=== PATIENT | male | born 1945 | race Caucasian/White ===

== ENCOUNTER → 2017-04-14 | Outpatient (REF) | payer MEDICARE, BC, OTHER ==
[2017-04-14 12:39] LABS: MEAN CORPUSCULAR HEMOGLOBIN 33.6 pg (27.0-33.0); MEAN CORPUSCULAR HGB CONC 33.9 g/dl (32.0-36.5); RED CELL DISTRIBUTION WIDTH 13.2 % (11.5-14.5); WHITE BLOOD COUNT 5.6 K/mm3 (4.0-10.0)
[2017-04-14 12:57] LABS: FOLATE 20.4 NG/ML
[2017-04-14 12:59] LABS: FREE T4 0.9 NG/DL (0.76-1.46); PERCENT SATURATION 41.1 % (19.7-37.4)
== END ==
LOC: M SFHCADAM 08:59
PROVIDERS: ATTEND Physician Assistant
DX: D64.9 Anemia, unspecified (principal); E11.40 Type 2 diabetes mellitus with diabetic neuropathy, unspecified; E78.4 Other hyperlipidemia; E55.9 Vitamin D deficiency, unspecified
CPT/HCPCS: 80061; 82306; 82607; 82728; 82746; 83036; 83550; 84439; 84443; 85027; G0463

== ENCOUNTER → 2017-09-29 | Outpatient (REF) | payer BC, MEDICARE ==
[2017-09-29 21:02] LABS: MEAN CORPUSCULAR HEMOGLOBIN 33.6 pg (27.0-33.0); MEAN CORPUSCULAR HGB CONC 34.3 g/dl (32.0-36.5); MEAN CORPUSCULAR VOLUME 97.8 fl (80.0-96.0); PLATELET COUNT, AUTOMATED 301 10^3/uL (150-450); RED CELL DISTRIBUTION WIDTH 12.4 % (11.5-14.5); WHITE BLOOD COUNT 11.9 10^3/uL (4.0-10.0)
[2017-09-29 21:22] LABS: ALBUMIN 4.2 GM/DL (3.2-5.2); ALBUMIN/GLOBULIN RATIO 1.68 (1.00-1.93); ALKALINE PHOSPHATASE 74 U/L (45-117); ALT/SGPT 28 U/L (12-78); ANION GAP 8 MEQ/L (8-16); AST/SGOT 22 U/L (7-37); BILIRUBIN,TOTAL 0.9 MG/DL (0.2-1.0); BLOOD UREA NITROGEN 22 MG/DL (7-18); CALCIUM LEVEL 10.8 MG/DL (8.8-10.2); CARBON DIOXIDE LEVEL 31 MEQ/L (21-32); CHLORIDE LEVEL 97 MEQ/L (98-107); CREATININE FOR GFR 1.03 MG/DL (0.70-1.30); GLOMERULAR FILTRATION RATE > 60.0 (>42); GLUCOSE, FASTING 131 MG/DL (83-110); POTASSIUM SERUM 4.6 MEQ/L (3.5-5.1); SODIUM LEVEL 136 MEQ/L (136-145); TOTAL PROTEIN 6.7 GM/DL (6.4-8.2)
== END ==
LOC: M SFHCADAM 10:22
PROVIDERS: ATTEND Physician Assistant
DX: E78.4 Other hyperlipidemia (principal); D64.9 Anemia, unspecified; E11.40 Type 2 diabetes mellitus with diabetic neuropathy, unspecified

== ENCOUNTER → 2017-12-21 | Outpatient (CLI) | payer MEDICARE, OTHER, BC | LOC: M ADAMS 08:45 | DX: R07.0 Pain in throat (principal); M50.30 Other cervical disc degeneration, unspecified cervical region | CPT/HCPCS: 70360 ==

== ENCOUNTER → 2018-03-29 | Outpatient (REF) | payer MEDICARE, OTHER ==
[2018-03-29 13:14] LABS: BASO % 0.5 % (0.0-1.0); EOS # 0.1 10^3/uL (0.0-0.50); EOS % 1.6 % (0.0-3.0); HEMATOCRIT 38.4 % (42.0-52.0); HEMOGLOBIN 13.2 g/dl (13.5-17.5); IMMATURE GRANULOCYTE % 0.7 % (0-3.0); LYMPH # 1.9 10^3/uL (1.5-4.5); LYMPH % 31.7 % (24.0-44.0); MEAN CORPUSCULAR HEMOGLOBIN 33.5 pg (27.0-33.0); MEAN CORPUSCULAR HGB CONC 34.4 g/dl (32.0-36.5); MEAN CORPUSCULAR VOLUME 97.5 fl (80.0-96.0); MONO # 0.8 10^3/uL (0.0-0.8); NEUTROPHILS # 3.2 10^3/uL (1.8-7.7); NEUTROPHILS % 52.5 % (36.0-66.0); PLATELET COUNT, AUTOMATED 263 10^3/uL (150-450); RED BLOOD COUNT 3.94 10^6/uL (4.30-6.10); RED CELL DISTRIBUTION WIDTH 12.3 % (11.5-14.5); WHITE BLOOD COUNT 6.1 10^3/uL (4.0-10.0)
[2018-03-29 13:24] LABS: ESTIMATED AVERAGE GLUCOSE 146 MG/DL (60-110); HEMOGLOBIN A1c 6.7 %
[2018-03-29 13:43] LABS: ALBUMIN 3.8 GM/DL (3.2-5.2); ALBUMIN/GLOBULIN RATIO 1.41 (1.00-1.93); ALKALINE PHOSPHATASE 64 U/L (45-117); ALT/SGPT 25 U/L (12-78); ANION GAP 6 MEQ/L (8-16); AST/SGOT 16 U/L (7-37); BILIRUBIN,TOTAL 0.6 MG/DL (0.2-1.0); BLOOD UREA NITROGEN 13 MG/DL (7-18); CALCIUM LEVEL 9.3 MG/DL (8.8-10.2); CARBON DIOXIDE LEVEL 30 MEQ/L (21-32); CHLORIDE LEVEL 101 MEQ/L (98-107); CHOLESTEROL LEVEL 127 MG/DL (<200); CHOLESTEROL RISK RATIO 1.984 (<5); CREATININE FOR GFR 0.89 MG/DL (0.70-1.30); FREE T4 0.91 NG/DL (0.76-1.46); GLOMERULAR FILTRATION RATE > 60.0 (>42); GLUCOSE, FASTING 139 MG/DL (70-100); HDL CHOLESTEROL 64 MG/DL (>40); NON-HDL-C 63 MG/DL; POTASSIUM SERUM 4.9 MEQ/L (3.5-5.1); SODIUM LEVEL 137 MEQ/L (136-145); THYROID STIMULATING HORMONE 0.744 uIU/ML (0.358-3.740); TOTAL PROTEIN 6.5 GM/DL (6.4-8.2); TRIGLYCERIDES LEVEL 70 MG/DL (<150)
== END ==
LOC: M SFHCADAM 08:12
DX: E78.4 Other hyperlipidemia (principal); E11.40 Type 2 diabetes mellitus with diabetic neuropathy, unspecified; I10 Essential (primary) hypertension
CPT/HCPCS: 84443

== ENCOUNTER → 2018-04-05 | Outpatient (REF) | payer MEDICARE, OTHER ==
[2018-04-05 13:19] LABS: FOLATE 13.2 NG/ML; VITAMIN B12 LEVEL 399 PG/ML
[2018-04-05 13:30] LABS: FERRITIN 78 NG/ML (26-388); IRON (FE) 113 UG/DL (65-175); PERCENT SATURATION 39.5 % (19.7-50.0); TOTAL IRON BINDING CAPACITY 286 UG/DL (250-450)
== END ==
LOC: M SFHCADAM 08:24
DX: D53.9 Nutritional anemia, unspecified (principal)
CPT/HCPCS: 82746

== ENCOUNTER → 2018-09-01 | Outpatient (REF) | payer MEDICARE, OTHER | LOC: M LAB REF 12:58 | DX: J02.9 Acute pharyngitis, unspecified (principal) | CPT/HCPCS: 87081 ==

== ENCOUNTER → 2018-09-19 | Outpatient (REF) | payer MEDICARE, OTHER ==
[2018-09-19 13:37] LABS: ANION GAP 7 MEQ/L (8-16); BLOOD UREA NITROGEN 15 MG/DL (7-18); CALCIUM LEVEL 9.4 MG/DL (8.8-10.2); CARBON DIOXIDE LEVEL 30 MEQ/L (21-32); CHLORIDE LEVEL 100 MEQ/L (98-107); CREATININE FOR GFR 0.83 MG/DL (0.70-1.30); GLOMERULAR FILTRATION RATE > 60.0 (>42); GLUCOSE, FASTING 152 MG/DL (70-100); POTASSIUM SERUM 4.7 MEQ/L (3.5-5.1); SODIUM LEVEL 137 MEQ/L (136-145)
[2018-09-19 13:48] LABS: CREATININE, URINE 61.6 MG/DL; MALB URINE SIEMENS 19.1 MG/L
[2018-09-19 16:27] LABS: ESTIMATED AVERAGE GLUCOSE 134 MG/DL (60-110); HEMOGLOBIN A1c 6.3 %
== END ==
LOC: M SFHCADAM 08:25
DX: I10 Essential (primary) hypertension (principal); E11.40 Type 2 diabetes mellitus with diabetic neuropathy, unspecified
CPT/HCPCS: 83036

== ENCOUNTER → 2019-08-10 | Outpatient (REF) | payer MEDICARE, OTHER ==
[2019-08-10 13:59] LABS: HEMATOCRIT 39.4 % (42.0-52.0); HEMOGLOBIN 13.5 g/dl (13.5-17.5); MEAN CORPUSCULAR HEMOGLOBIN 33.8 pg (27.0-33.0); MEAN CORPUSCULAR HGB CONC 34.3 g/dl (32.0-36.5); MEAN CORPUSCULAR VOLUME 98.5 fl (80.0-96.0); PLATELET COUNT, AUTOMATED 245 10^3/uL (150-450); WHITE BLOOD COUNT 6.5 10^3/uL (4.0-10.0)
[2019-08-10 14:21] LABS: ALBUMIN 3.8 GM/DL (3.2-5.2); ALT/SGPT 21 U/L (12-78); BILIRUBIN,TOTAL 0.7 MG/DL (0.2-1.0); BLOOD UREA NITROGEN 11 MG/DL (7-18); CALCIUM LEVEL 9.7 MG/DL (8.8-10.2); CARBON DIOXIDE LEVEL 30 MEQ/L (21-32); CHLORIDE LEVEL 100 MEQ/L (98-107); CHOLESTEROL LEVEL 123 MG/DL (<200); CHOLESTEROL RISK RATIO 2.084 (<5); CREATININE FOR GFR 0.94 MG/DL (0.70-1.30); GLOMERULAR FILTRATION RATE > 60.0 (>42); GLUCOSE, FASTING 142 MG/DL (70-100); HDL CHOLESTEROL 59 MG/DL (>40); LDL CHOLESTEROL 46 MG/DL (<100); NON-HDL-C 64 MG/DL; POTASSIUM SERUM 4.7 MEQ/L (3.5-5.1); SODIUM LEVEL 138 MEQ/L (136-145); TOTAL PROTEIN 6.3 GM/DL (6.4-8.2); TRIGLYCERIDES LEVEL 88 MG/DL (<150)
[2019-08-10 14:25] LABS: HEMOGLOBIN A1c 6.2 %
== END ==
LOC: M SFHCADAM 07:54
PROVIDERS: ATTEND Physician Assistant
DX: D64.9 Anemia, unspecified (principal); I10 Essential (primary) hypertension; E78.49 Other hyperlipidemia; E11.40 Type 2 diabetes mellitus with diabetic neuropathy, unspecified

== ENCOUNTER 2020-12-11 18:05 | Inpatient (IN) | payer MEDICARE, OTHER ==
[~2020-12-11] VITALS: Ht 182.9 cm; Wt 80.8 kg
--- NOTE | 2020-12-11 18:27 | REP ---
INDICATION: TRAUMA. COMPARISON: Comparison chest x-ray 26 November 2010.. TECHNIQUE: Sitting AP portable chest x-ray. FINDINGS: Monitoring electrodes are seen. There is extensive diffuse and bilateral extra thoracic subcutaneous emphysema. A pneumomediastinum is visible. I do not see a definite pneumothorax although the degree of soft tissue emphysema could obscure a small pneumothorax. There is no mediastinal shift. Heart is not enlarged. No definite infiltrate is seen in the lung howe. There appear to be fractures of the right posterior 9th and 10th ribs. No other fracture is apparent. IMPRESSION: Extensive diffuse bilateral subcutaneous extrathoracic emphysema consistent with pulmonary barotrauma. There appear to be 2 right-sided rib fractures, [address] in [address] chest [address] <Electronically signed by Ronald Kumar > 12/11/20 [id number]
[2020-12-11 18:44] LABS: BASO % 0.4 % (0.0-1.0); EOS # 0.1 10^3/uL (0.0-0.5); EOS % 0.5 % (0.0-3.0); HEMOGLOBIN 12.6 g/dl (13.5-17.5); LYMPH # 3.3 10^3/uL (1.5-5.0); LYMPH % 29.8 % (24.0-44.0); MEAN CORPUSCULAR HEMOGLOBIN 32.5 pg (27.0-33.0); MEAN CORPUSCULAR HGB CONC 33.2 g/dl (32.0-36.5); MEAN CORPUSCULAR VOLUME 97.9 fl (80.0-96.0); MONO # 0.8 10^3/uL (0.0-0.8); MONO % 7.5 % (0.0-5.0); NEUTROPHILS # 6.7 10^3/uL (1.5-8.5); NEUTROPHILS % 61.1 % (36.0-66.0); PLATELET COUNT, AUTOMATED 248 10^3/uL (150-450); RED BLOOD COUNT 3.88 10^6/uL (4.30-6.10)
--- NOTE | 2020-12-11 18:54 | REPVR ---
PROCEDURE INFORMATION: Exam: CT Head Without Contrast Exam date and time: 12/11/2020 6:44 PM Age: 75 years old Clinical indication: Injury or trauma; Fall; Blunt trauma (contusions or hematomas) TECHNIQUE: Imaging protocol: Computed tomography of the head without contrast. Radiation optimization: All CT scans at this facility use at least one of these dose optimization techniques: automated exposure control; mA and/or kV adjustment per patient size (includes targeted exams where dose is matched to clinical indication); or iterative reconstruction. COMPARISON: No relevant prior studies available. FINDINGS: Brain: The brain demonstrates generalized volume loss. No hemorrhage or edema seen. Cerebral ventricles: The ventricles are mildly enlarged in keeping with volume loss. Bones/joints: No acute calvarial fracture seen. Paranasal sinuses: Visualized sinuses are unremarkable. No fluid levels. Mastoid air cells: Trace, dependent right mastoid effusion. Orbital cavity: Thinning of the lenses of the globes consistent with prior lens surgery. Soft tissues: There is extensive soft tissue emphysema including retropharyngeal air. The coin dealer view demonstrates diffuse upper chest and neck soft tissue air. IMPRESSION: No acute intracranial abnormality seen. Electronically signed by: Ciarra Bear On 12/11/2020 18:53:59 PM
[2020-12-11 18:55] LABS: INR 0.97; PROTHROMBIN TIME 13.1 SECONDS (12.5-14.3)
[2020-12-11] MEDS: MORPHINE 2 MG/ML 1ML VIAL (J2270) IV PRN ×2 (18:55→19:17)
[2020-12-11 18:56] LABS: PARTIAL THROMBOPLASTIN TIME 26.8 SECONDS (24.2-38.5)
[2020-12-11] MEDS ORDERED: LIDOCAINE 1% MDV 20ML VIAL As Ordered ONE (18:58)
[2020-12-11] MEDS ORDERED: LIDOCAINE 1% MDV 20ML VIAL SC ONE (19:00)
--- NOTE | 2020-12-11 19:07 | REPVR ---
PROCEDURE INFORMATION: Exam: CT Cervical Spine Without Contrast Exam date and time: 12/11/2020 6:44 PM Age: 75 years old Clinical indication: Injury or trauma; Fall; Blunt trauma TECHNIQUE: Imaging protocol: Computed tomography images of the cervical spine without contrast. Radiation optimization: All CT scans at this facility use at least one of these dose optimization techniques: automated exposure control; mA and/or kV adjustment per patient size (includes targeted exams where dose is matched to clinical indication); or iterative reconstruction. Other technique: COMPARISON MORE: [place] Chest, 1 view 12/11/2020 6:14:21 PM; COMPARISON MORE: CT Chest with contrast 12/11/2020 6:34:56 PM COMPARISON: No relevant prior studies available. FINDINGS: Bones/joints: Anatomic alignment. No cervical spine fracture seen. Discs/Spinal canal/Neural foramina: Moderate multilevel degenerative disc disease and facet arthropathy. A component of calcified disc protrusion at C4-C5. Central spinal canal stenoses are likely moderate from C4-C5 through C6-C7. Multilevel neural foraminal stenoses due to uncovertebral and facet arthropathy. Retropharyngeal space: Extensive soft tissue air including retropharyngeal air and widespread subcutaneous emphysema. Mediastinal space: There is pneumomediastinum. The lung apices are evaluated separately on a dedicated exam. Pleural spaces: Bilateral pneumothoraces, in particular right apical pneumothorax. Soft tissues: No evidence of prevertebral soft tissue edema. IMPRESSION: No cervical spine fracture seen. Electronically signed by: Ciarra Bear On 12/11/2020 19:07:32 PM
[2020-12-11 19:11] LABS: ALBUMIN 3.6 GM/DL (3.2-5.2); ALT/SGPT 54 U/L (12-78); AMYLASE 50 U/L (25-115); BILIRUBIN,DIRECT < 0.1 MG/DL (0.0-0.2); BILIRUBIN,TOTAL 0.4 MG/DL (0.2-1.0); BLOOD UREA NITROGEN 15 MG/DL (7-18); CALCIUM LEVEL 8.9 MG/DL (8.8-10.2); CARBON DIOXIDE LEVEL 27 MEQ/L (21-32); CHLORIDE LEVEL 92 MEQ/L (98-107); CK-MB VALUE MASS 3.3 NG/ML (<3.6); CPK CREATINE PHOSPHOKINASE 196 U/L (39-308); CREATININE FOR GFR 0.86 MG/DL (0.70-1.30); ETHYL ALCOHOL (ETHANOL) 0.144 % (0.000-0.010); GLOMERULAR FILTRATION RATE > 60.0 (>42); GLUCOSE, FASTING 175 MG/DL (70-100); LIPASE 72 U/L (73-393); MB/CK RELATIVE INDEX 1.68 (< OR =4); POTASSIUM SERUM 4.5 MEQ/L (3.5-5.1); SODIUM LEVEL 130 MEQ/L (136-145); TOTAL PROTEIN 6.4 GM/DL (6.4-8.2); TROPONIN I < 0.02 NG/ML (< 0.10)
--- NOTE | 2020-12-11 19:20 | REPVR ---
PROCEDURE INFORMATION: Exam: CT Chest With Contrast; Diagnostic Exam date and time: 12/11/2020 6:44 PM Age: 75 years old Clinical indication: Injury or trauma; Fall; Blunt trauma (contusions or hematomas) TECHNIQUE: Imaging protocol: Diagnostic computed tomography of the chest with intravenous contrast. Radiation optimization: All CT scans at this facility use at least one of these dose optimization techniques: automated exposure control; mA and/or kV adjustment per patient size (includes targeted exams where dose is matched to clinical indication); or iterative reconstruction. Contrast material: ISO 370; Contrast volume: 100 ml; Contrast route: INTRAVENOUS (IV); COMPARISON: [place] Chest, 1 view 12/11/2020 6:14 PM FINDINGS: Pleural spaces and lungs: There is a very large pneumothorax on the right estimated at 70% and this is a tension pneumothorax. There is shift of the mediastinal structures and heart towards the left. Heart: The heart is normal in size. There is very severe pneumomediastinum with air surrounding the upper mediastinal structures, the great vessels and the cardiac margin. Just anterior to the heart is a large collection air. This air dissects into the anterior abdominal wall. Pulmonary arteries: There is opacification of the pulmonary arteries with no evidence of pulmonary embolus. Aorta: There is opacification of the aorta. Lymph nodes: Unremarkable. No enlarged lymph nodes. Liver: There is uniform enhancement of the liver. Gallbladder and bile ducts: Normal gallbladder. Spleen: Normal spleen. Kidneys and ureters: There is a large cyst of the upper pole of the right and left kidney. Both kidneys enhance. Stomach and bowel: There is distention of the stomach with a large amount of secretions and an air-fluid level. Bones/joints: There is a fracture of the posterior aspect of the right 9th, 10th, 11th, and 12th ribs. The fracture of the 10th rib is both posterior and lateral. There is a moderate right pleural effusion probably serous fluid and abutting the multiple posterior and posterolateral rib fractures. Soft tissues: There is a massive amount of subcutaneous air throughout the neck shoulders chest and abdomen and circumferential. IMPRESSION: 1. Very large 70% pneumothorax on the right and this is a tension pneumothorax with shift of the mediastinal structures and heart to the left. Massive amount of pneumomediastinum and loculated air anterior to the cardiac silhouette. 2. Massive subcutaneous air throughout the chest and abdomen. 3. Fracture of the posterior aspect of the right 9th, 10th, 11th, and 12th ribs with offset fractures at several areas and probably the source of the pneumothorax. Findings were discussed with GUZMAN SALAS at 12/11/2020 7:19 PM EST. Electronically signed by: Sha Barrera On 12/11/2020 19:19:29 PM
--- NOTE | 2020-12-11 19:34 | REPVR ---
PROCEDURE INFORMATION: Exam: CT Abdomen And Pelvis With Contrast Exam date and time: 12/11/2020 6:44 PM Age: 75 years old Clinical indication: Injury or trauma; Fall; Blunt TECHNIQUE: Imaging protocol: Computed tomography of the abdomen and pelvis with intravenous contrast. Radiation optimization: All CT scans at this facility use at least one of these dose optimization techniques: automated exposure control; mA and/or kV adjustment per patient size (includes targeted exams where dose is matched to clinical indication); or iterative reconstruction. Contrast material: ISO 370; Contrast volume: 100 ml; Contrast route: INTRAVENOUS (IV); COMPARISON: CT ABD PELVIS W/O CONTRAST 08/26/2016 8:43 AM FINDINGS: Pleural spaces: 70% tension pneumothorax on the right. Severe pneumomediastinum and air anterior to the heart and extending into the abdominal wall. Liver: There is enhancement throughout the liver. Gallbladder and bile ducts: Normal gallbladder. Pancreas: Normal pancreas. Spleen: Normal spleen. Adrenal glands: Normal adrenal glands. Kidneys and ureters: There are cysts of both kidneys. There is diffuse enhancement of both kidneys. Stomach and bowel: There is distention of the stomach with a large air-fluid level. Appendix: There is no evidence of inflammation in the region of the margin of the cecum or appendix. Intraperitoneal space: There is no evidence of free fluid in the abdomen or the pelvis. Vasculature: There is opacification of the aorta. There is atherosclerotic plaque formation calcification throughout the aorta. Lymph nodes: Unremarkable. No enlarged lymph nodes. Urinary bladder: Normal urinary bladder. Reproductive: There is moderate enlargement of the prostate. There is a lobular projection of the prostate superiorly and pressing on the floor of the urinary bladder. This lobular component could be hypertrophy or malignancy. Bones/joints: Fracture of the right posterior 9th, 10th, 11th, and 12th ribs. Soft tissues: Massive subcutaneous air thorax, abdomen, pelvis and scrotum. There is a left inguinal hernia with protrusion a loop of colon into this left hernia. Subcutaneous air along the muscles of the back especially on the right. There is massive subcutaneous edema extending throughout the scrotum and surrounding the testicles. IMPRESSION: 1. Severe distension of the stomach with secretions and an air-fluid level. 2. Numerous posterior rib fractures on the right with a moderate right pleural effusion probably serous fluid. 3. 70% tension pneumothorax on the right. 4. Subcutaneous air throughout the chest, abdomen , pelvis and scrotum. 5. Left inguinal hernia with a loop of colon extending into this left inguinal hernia. No obstruction at this time but this would be concern. 6. Enlargement of the prostate with a lobulation impressing on the floor of the urinary bladder. Considerations include hypertrophy and malignancy. Electronically signed by: Sha Barrera On 12/11/2020 19:34:13 PM
[2020-12-11] MEDS ORDERED: MED REC COMMENT (19:39)
[2020-12-11] MEDS ORDERED: METF10004 PO (19:39)
[2020-12-11] MEDS ORDERED: SIMV40TA20 PO (19:39)
[2020-12-11] MEDS ORDERED: ACETAMINOPHEN TAB 650MG DOSE (2X325MG) PO PRN (19:45)
[2020-12-11] MEDS ORDERED: ONDANSETRON 4MG/2ML VIAL IV PRN (19:45)
[2020-12-11] MEDS ORDERED: MORPHINE 2 MG/ML 1ML VIAL (J2270) IV PRN (19:45)
[2020-12-11] MEDS: LR 1,000 ML IV SCH (20:02)
--- NOTE | 2020-12-11 20:38 | RO ---
OPERATIVE NOTE DATE OF OPERATION: 12/11/2020 PREOPERATIVE DIAGNOSIS: Right hemopneumothorax. POSTOPERATIVE DIAGNOSIS: Right hemopneumothorax. PROCEDURE: Right tube thoracostomy. SURGEON: Walker Nixon M.D. [employer] M[employer]ER: ANESTHESIA: Local of 1% Xylocaine. INDICATIONS FOR PROCEDURE: The patient is a 75-year-old man who suffered a fall at home and presented to the emergency department with right posterior chest pain and extensive subcutaneous emphysema of the abdomen, chest, neck, and face. Chest x-ray was difficult to interpret and a CT scan showed a large right pneumothorax with some blood, as well as four posterior right rib fractures. He is now for placement of a chest tube. DESCRIPTION OF PROCEDURE: The patient was rolled in to a partial left lateral decubitus position. The right anterolateral lower chest wall was prepped with ChloraPrep and raped sterilely. The patient received 2 mg of morphine intravenously. Local anesthesia of 1% Xylocaine was infiltrated at approximately the anterior axillary line. An approximately 2.5 cm transverse skin incision was made and deepened into the subcutaneous tissues. There was significant release of subcutaneous emphysema during the procedure. The incision was deepened through the subcutaneous tissues and the muscle fibers were spread. Scissors were used to spread the tissues at the top of the next highest rib and enter the chest cavity. There was release of a large amount of air with entry into the pleura. Digital exam showed no evidence of adhesion of the lung to the chest wall. A 28 [place]i chest tube was obtained and directed through the skin incision and into the pleura and was then slipped off of the trocar. The chest tube could not be manipulated toward the apex of the chest easily and so it was inserted to its maximum insertion of approximately 16 cm and appeared to extend more anteriorly and medially. A U-stitch of 2-0 silk was placed about the tube. A 2-0 silk was placed in the skin and sutured around the tube. Two 2x2s were placed around the entry site. Once the tube had been placed, it was clamped with a shahida clamp to occlude it. The chest tube was securely taped to the chest wall and was then connected to the Pleur-Evac suction unit. The patient tolerated the procedure well. The Pleur-Evac was placed to 20 cm of water suction with return of some blood.
--- NOTE | 2020-12-11 21:28 | REPVR ---
PROCEDURE INFORMATION: Exam: XR Chest, 1 View Exam date and time: 12/11/2020 7:41 PM Age: 75 years old Clinical indication: Other: Chest tube; Additional info: Follow chest tube TECHNIQUE: Imaging protocol: XR of the chest Views: 1 view. COMPARISON: CT Chest with contrast 12/11/2020 6:34 PM FINDINGS: Tubes, catheters and devices: A right chest tube is present overlying the right hilum. Lungs: Bibasilar atelectasis.. Pleural spaces: Right pneumothorax seen previously is no longer well visualized but may be obscured by overlying subcutaneous emphysema. Heart/Mediastinum: Pneumomediastinum is present. Bones/joints: Multiple right posterior rib fractures. Soft tissues: There is extensive subcutaneous emphysema throughout the chest. IMPRESSION: 1. Extensive subcutaneous emphysema. 2. Right chest tube is in place. No residual pneumothorax is seen. 3. Multiple right rib fractures. Electronically signed by: Emmanuel Nayak On 12/11/2020 21:28:25 PM
[2020-12-11] MEDS: DOCUSATE SODIUM 100MG CAPSULE PO SCH (21:41)
[2020-12-11] MEDS ORDERED: ATEN50TA2 PO (22:47)
[2020-12-12] VITALS (9 sets, daily range): BP systolic 122–150; BP diastolic 56–82
[2020-12-12] MEDS: HumaLOG INSULIN (NovoLOG) PER UNIT SC SCH ×4 (00:50→18:39)
[2020-12-12] MEDS: oxyCODONE 5MG TAB PO PRN (00:53)
[2020-12-12] MEDS: LR 1,000 ML IV SCH ×2 (04:39→11:41)
[2020-12-12 05:04] LABS: BASO % 0.2 % (0.0-1.0); HEMATOCRIT 30.7 % (42.0-52.0); HEMOGLOBIN 10.6 g/dl (13.5-17.5); LYMPH # 0.6 10^3/uL (1.5-5.0); LYMPH % 3.8 % (24.0-44.0); MEAN CORPUSCULAR HEMOGLOBIN 32.5 pg (27.0-33.0); MEAN CORPUSCULAR HGB CONC 34.5 g/dl (32.0-36.5); MEAN CORPUSCULAR VOLUME 94.2 fl (80.0-96.0); MONO # 1.3 10^3/uL (0.0-0.8); MONO % 8.6 % (0.0-5.0); PLATELET COUNT, AUTOMATED 214 10^3/uL (150-450); RED BLOOD COUNT 3.26 10^6/uL (4.30-6.10); WHITE BLOOD COUNT 14.9 10^3/uL (4.0-10.0)
[2020-12-12 05:35] LABS: BLOOD UREA NITROGEN 14 MG/DL (7-18); CALCIUM LEVEL 8.3 MG/DL (8.8-10.2); CARBON DIOXIDE LEVEL 24 MEQ/L (21-32); CHLORIDE LEVEL 98 MEQ/L (98-107); CREATININE FOR GFR 0.82 MG/DL (0.70-1.30); GLOMERULAR FILTRATION RATE > 60.0 (>42); GLUCOSE, FASTING 161 MG/DL (70-100); POTASSIUM SERUM 4.4 MEQ/L (3.5-5.1); SODIUM LEVEL 131 MEQ/L (136-145)
--- NOTE | 2020-12-12 07:38 | HPE ---
HISTORY AND PHYSICAL DATE OF ADMISSION: 12/11/2020 ADMITTING DIAGNOSIS: Multiple right rib fractures with hemopneumothorax status post fall. HISTORY OF PRESENT ILLNESS: The patient is a 75-year-old man who was brought to the emergency department by ambulance at 1805 on 12/11/2020. It was reported that he had sustained a fall at home. The ambulance crew reported that he was walking across his living room and fell landing on his right side. He had significant pain in the right back. He was transported and it was reported that during transport, it was noticed that he was developing increasing swelling of the face and chest with evidence for subcutaneous emphysema. In the emergency department, the trauma code was activated and I presented to evaluate the patient. He did have marked emphysema of the soft tissues of the abdomen, chest, neck, and face. His eyes were swollen shut. He was breathing easily, but complaining of pain in the back. Chest x-ray was difficult to interpret due to the extensive air tracking through the subcutaneous tissues and outlining the muscles of the chest. There appeared to be a fracture of one right posterior rib that was partially seen. A CT scan of the head, neck, chest, abdomen, and pelvis was then obtained. The chest portion of the scan showed a pneumothorax with some layering of blood in the right chest. He was noted to have four right rib fractures posteriorly. Extensive air was noted tracking through the soft tissues of the chest. There was no evidence of pneumothorax on the left, but there was some mediastinal area noted. The other CT scans showed no evidence of significant injury. A chest tube was placed and he is admitted now for management of his hemopneumothorax and his rib fractures. ALLERGIES: The patient denies any known drug allergies. MEDICATIONS: The patient told me that he has been taking atorvastatin, Atenolol, and metformin. PAST MEDICAL HISTORY: 1. Diabetes mellitus type 2. 2. Hypertension. 3. Hyperlipidemia. 4. Recent office record indicates a history of gastroesophageal reflux disease. 5. Osteoarthritis. 6. Essential tremor. The patient is normally followed by PAUL Jimenez in the [facility]. PAST SURGICAL HISTORY: 1. Inguinal hernia repair in 12/2010. 2. Bilateral cataract extractions with lens implants. 3. Colonoscopy several times most recently in 02/2015. FAMILY HISTORY: Father is in his late 60s from diabetes and his mother at 71 from breast cancer. SOCIAL HISTORY: The patient is . He is a former smoker. He does admit to significant alcohol intake. In the emergency department on presentation today, his alcohol level was noted to be 0.144. REVIEW OF SYSTEMS: Reveals no history of recent chest pain or palpitations. He denies any shortness of breath, cough, or wheezing. He has had no dysuria or hematuria. He denies any GI problems. He has had no recent change in bone or joint issues. He denies any use of anticoagulants. He has had no history of DVT or pulmonary embolus. He denies seizures or strokes. PHYSICAL EXAMINATION: VITAL SIGNS: Showing him to be afebrile. His pulse is in the 70s to 80s. His blood pressure has been elevated in the emergency department. GENERAL APPEARANCE: He is alert and responsive appropriately. He is complaining of pain in his right back. HEENT: He has marked swelling of the face from underlying subcutaneous air. This extends all the way up to the scalp. Mucous membranes appear somewhat tacky. NECK: Also shows evidence of subcutaneous emphysema. CHEST: There is extensive subcutaneous emphysema of the chest wall. HEART: Shows a regular rhythm. I do not hear good breath sounds on the right, though he has acceptable breath sounds on the left. The clavicles appear intact. He has moderate to marked tenderness on palpation of the right lower ribs posteriorly. There is no definite bony abnormality palpable and no flail segment identified. The sternum appears intact. ABDOMEN: Somewhat full and there is also subcutaneous emphysema of the abdominal wall. The abdomen is soft and without any tenderness to palpation. There is some air even down into the scrotum. EXTREMITIES: The lower extremities are without evident injury. He has palpable radial and pedal pulses bilaterally. LABORATORY STUDIES: In the emergency department, show a white count of 11, hemoglobin of 13, hematocrit of 38, and a platelet count of 248,000. Differential count shows 61% neutrophils, 30% lymphocytes, and 8% monocytes. Chemistry profile shows sodium 130, potassium 4.5, chloride 92, CO2 of 27, BUN of 15, creatinine 0.86, and a glucose of 175. Calcium was 8.9. Total bilirubin 0.4, AST 95, ALT 54, and alkaline phosphatase 57. His troponin was less than 0.02. Total protein 6.4 with an albumin of 3.6. The lactic acid was 7.4. Coags were normal. Urinalysis showed a specific gravity of 1.019 and 1+ blood, but the microscopic showed 0 white cells and 0 red cells per high powered field. As noted previously, his ethyl alcohol was 0.144. Respiratory panel was negative including SARS-coV-2. IMAGING STUDIES: Included a head CT that showed no evidence of intracranial injury. Cervical spine CT showed some preexisting degenerative changes of the cervical spine, but with no evidence of fracture. He was noted to have extensive soft tissue air. CT of the chest showed a hemopneumothorax on the right with severe pneumomediastinum. There was no evidence of major vessel injury. He was noted to have fractures of the right 9th, 10th, 11th, and 12th ribs. CT of the abdomen and pelvis revealed bilateral renal cysts. The stomach appeared somewhat distended and largely fluid filled. There was no free intraabdominal fluid and no evidence of free air. There was extensive subcutaneous and intramuscular air. There was noted to be a left inguinal hernia with a loop of large bowel extending into the hernia, but no evidence of obstruction. Following placement of the chest tube, a chest x-ray showed no significant residual pneumothorax. His right rib fractures were noted. The chest tube extended roughly transversely across the chest to the mediastinum. IMPRESSION: 1. Right hemopneumothorax secondary to multiple right rib fractures. 2. Multiple right rib fractures. 3. Extensive subcutaneous and soft tissue emphysema. 4. Alcohol intoxication. 5. Hypertension. 6. Diabetes mellitus type 2. 7. Hyperlipidemia. 8. Gastroesophageal reflux. PLAN: The patient is admitted to the progressive care unit for close monitoring. A chest tube was placed in the emergency department. This led to expansion of the right lung and evacuation of approximately 600 mL of blood. He will be provided with analgesics as necessary. He does not appear to require antibiotics at this time. I will keep him on some nasal cannula oxygen at this time. His soft tissue emphysema should resolve gradually, I would anticipate this will take several days. He will need to be monitored for any evidence of development of a pneumothorax on the left and a daily chest x-ray has been ordered. I will keep him n.p.o. for now. We will start respiratory toilet with incentive spirometry. I will continue his usual medications starting in the morning and if his subcutaneous emphysema has subsided substantially, I would anticipate being able to start him on a diet. JOHNNY
[2020-12-12] MEDS ORDERED: SODIUM CHLORIDE 0.9% 1000ML IV ONE (08:00)
--- NOTE | 2020-12-12 08:04 | REP ---
INDICATION: follow chest tube COMPARISON: 12/11/2020 TECHNIQUE: Portable AP view of the chest FINDINGS: Right-sided chest tube in stable position. Advanced diffuse subcutaneous emphysema similar to prior examination. The mediastinum and cardiac silhouette are stable and within normal limits for portable technique. The lung howe are incompletely evaluated due to overlying subcutaneous emphysema, but small residual right apical pneumothorax as well as minimal basilar atelectasis cannot be excluded. IMPRESSION: 1. Limited by extensive subcutaneous emphysema. 2. Cannot exclude subtle basilar atelectasis and small residual right apical pneumothorax. <Electronically signed by Isac Avalos > 12/12/20 0800
[2020-12-12] MEDS: DOCUSATE SODIUM 100MG CAPSULE PO SCH ×2 (09:37→21:33)
[2020-12-12] MEDS: PANTOPRAZOLE 40MG VIAL (C9113 PER 1) IV SCH (09:37)
[2020-12-12] MEDS: KETOROLAC 30 MG/ML 1ML VIAL IV PRN ×2 (12:23→21:34)
[2020-12-12] MEDS ORDERED: LORazepam 2 MG TAB PO PRN (12:45)
[2020-12-12] MEDS: FOLIC ACID 1 MG TAB PO SCH (13:28)
[2020-12-12] MEDS: MULTIVITAMINS/MINERALS THERAP 1 TAB PO SCH (13:28)
[2020-12-12] MEDS: THIAMINE 100 MG TAB PO SCH ×2 (13:29→21:33)
[2020-12-12] MEDS: atenoloL 50 MG TAB PO SCH (13:29)
[2020-12-12] MEDS ORDERED: LORazepam 2 MG/ML VIAL IV PRN (19:45)
--- NOTE | 2020-12-12 21:29 | CR.PDOC ---
General Date of Consultation: Dec 12, 2020 Referring Provider: Walker Nixon Attending Physician: JARRELL DIALLO MD Consultation TIME OF SERVICE: 740pm REASON FOR CONSULT: possible alcohol w/d HISTORY OF PRESENT ILLNESS: This 75 yr old M was admitted on Dec 11 for management of hydropneumothorax after falling and sustaining multiple right sided rib fractures and had a chest tube placed last night. On admission he admitted to drinking alcohol daily and the CIWA order set was placed. Per d/w nursing staff the patient didnt sleep much last night and at around 4PM the patient became confused and was A&O x1 despite previously being A&O x3. He didnt eat most of his dinner, and has not been asking for pain meds. His HR and blood pressure have remained wnl normal limits and his most recent CIWA score was 11. At the time of my evaluation the patient thought that we were in his house, adm itted to having some chest pain, but could not tell me the date, who the president was or how he ended up at the hospital. REVIEW OF SYSTEMS: 12-point review of systems negative except as listed in HPI PAST MEDICAL/ SURGICAL HISTORY: NIDDM2 HTN DLP GERD OA Essential tremor Bilateral inguinal hernia repair Bilateral cataract extractions with subsequent lens implants SOCIAL HISTORY: Former smoker, drinks daily & is FAMILY HISTORY: DM, Breast cancer ALLERGIES: Please see below. HOME MEDICATIONS: Please see below. PHYSICAL EXAMINATION: VITAL SIGNS: Please see below. GENERAL APPEARANCE: lying on hospital bed with feet dangling on the edge of the bed HEENT: has periorbital swelling (per RN this has improved since admission) CARDIOVASCULAR: RRR/NMRG LUNGS: chest tube at right side draining serosanguineous fluid / breath sounds diminished on the right / right chest tender with palpation ABDOMEN: obese MUSCULOSKELETAL: hands in mittens/ IVANA x 4 NEUROLOGICAL: speech not dysarthric PSYCHIATRIC: A&Ox 1 LABORATORY DATA: see below IMAGING: Chest xray Dec 11 IMPRESSION: Extensive diffuse bilateral subcutaneous extrathoracic emphysema consistent with pulmonary barotrauma. There appear to be 2 right-sided rib fractures, 9 in 10. Recommend chest CT[address] CT head ...Brain: The brain demonstrates generalized volume loss. No hemorrhage or edema seen. Cerebral ventricles: The ventricles are mildly enlarged in keeping with volume loss. ...IMPRESSION: No acute intracranial abn ormality seen CT neck IMPRESSION: No cervical spine fracture seen. CT chestIMPRESSION: 1. Very large 70% pneumothorax on the right and this is a tension pneumothorax with shift of the mediastinal structures and heart to the left. Massive amount of pneumomediastinum and loculated air anterior to the cardiac silhouette. 2. Massive subcutaneous air throughout the chest and abdomen. 3. Fracture of the posterior aspect of the right 9th, 10th, 11th, and 12th ribs with offset fractures at several areas and probably the source of the pneumothorax. CT abd/pelvis IMPRESSION: 1. Severe distension of the stomach with secretions and an air-fluid level. 2. Numerous posterior rib fractures on the right with a moderate right pleural effusion probably serous fluid. 3. 70% tension pneumothorax on the right. 4. Subcutaneous air throughout the chest, abdomen , pelvis and scrotum. 5. Left inguinal hernia with a loop of colon extending into this left inguinal hernia. No obstruction at this time but this would be concern. 6. Enlargement of the prostate with a lobulation impressing on the floor of the urinary bladder. Considerations include hypertrophy and malignancy. MICROBIOLOGY: RESPIRATORY PANEL NEGATIVE by MULTIPLEXED NUCLEIC ACID PCR ASSESSMENT: is a 75 yr old M w a hx of NIDDM2 HTN DLP GERD OA Essential tremor who was admitted for management of hydropneumothorax after falling and sustaining multiple right sided rib fractures and had a chest tube placed; we were consul mj to evaluate the patient bc possible alcohol w/d. PLAN: 1. 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 He has been receiving adequate amounts of lorazepam based on his CIWA score. At this point in time I think he has delirium likely due to a combination of pain because he has not been asking for pain meds and sleep depravation. Plan: will ask his RN to give him Toradol and or Roxicodone per pain orders placed by / will switch from PRN acetaminophen to scheduled acetaminophen for the next 24H & add Rozerum QHS / f/u TSH, B1 and B12 2. Leucocytosis Likely reactive Plan: f/u UA, blood cx 3. Normocytic anemia Plan: f/u iron studies and stool occult 4. Mild Hyponatremia Plan: f/u Uosmo, serum osmol, Mallika & trend Na 5. BPH Plan: f/u w PCP for prostate cancer screening Thank you for consulting us, we will continue to follow this patient with you. Vital Signs/I&O Vital Signs Date Time Temp Pulse Resp B/P (MAP) Pulse Ox O2 Delivery O2 Flow Rate FiO2 12/12/20 20:00 98.6 64 18 148/82 (104) 93 Nasal Cannula 2.0 I&O- Last 24 Hours up to 6 AM 12/12/20 06:00 Intake Total 1500 ml Output Total 1140 ml Balance 360 ml Laboratory Data Labs 24H Laboratory Tests 2 12/12/20 00:22: Lactic Acid Followup at 4 Hours 6.4*H 12/12/20 00:46: Bedside Glucose (Misc Panel) 215H 12/12/20 04:50: Immature Granulocyte % (Auto) 0.4, Neutrophils (%) (Auto) 87.0H, Lymphocytes (%) (Auto) 3.8L, Monocytes (%) (Auto) 8.6H, Eosinophils (%) (Auto) 0.0, Basophils (%) (Auto) 0.2, Neutrophils # (Auto) 13.0H, Lymphocytes # (Auto) 0.6L, Monocytes # (Auto) 1.3H, Eosinophils # (Auto) 0.0, Basophils # (Auto) 0.0, Nucleated Red Blood Cells % (auto) 0.0, Anion Gap 9, Glomerular Filtration Rate > 60.0, Calcium Level 8.3L 12/12/20 05:35: Bedside Glucose (Misc Panel) 169H 12/12/20 09:38: Lactic Acid Level 2.1*H 12/12/20 12:33: Bedside Glucose (Misc Panel) 134H 12/12/20 14:20: Lactic Acid Followup at 4 Hours 2.7*H 12/12/20 18:21: Bedside Glucose (Misc Panel) 121H CBC/BMP Laboratory Tests 12/12/20 04:50 Microbiology Microbiology 12/12/20 Blood Culture, Received Pending 12/11/20 Respiratory Virus Panel (PCR) ([facility]) - Final, Complete Allergies Coded Allergies: No Known Drug Allergies (Verified Allergy, Unknown, 12/11/20) Home Medications Scheduled Atenolol (Atenolol) 50 Mg Tablet, 50 MG PO DAILY, (Reported) Metformin HCl (Metformin HCl) 1,000 Mg Tablet, 1,000 MG PO BID, (Reported) Simvastatin (Simvastatin) 40 Mg Tablet, 40 MG PO DAILY, (Reported) JARRELL DIALLO MD Dec 12, 2020 21:29
[2020-12-12] MEDS: SIMVASTATIN 40 MG TAB PO SCH (21:33)
[2020-12-12] MEDS: RAMELTEON 8 MG TAB (ROZEREM) PO SCH (21:33)
[2020-12-12] MEDS: ACETAMINOPHEN 650MG ER TAB (TYLENOL ARTHRITIS) PO SCH (22:09)
[2020-12-12] MEDS: LORazepam 2 MG TAB PO PRN (22:10)
[2020-12-13] VITALS (8 sets, daily range): BP systolic 122–149; BP diastolic 59–85
[2020-12-13] MEDS: HumaLOG INSULIN (NovoLOG) PER UNIT SC SCH ×5 (00:18→21:00)
[2020-12-13 05:01] LABS: BASO % 0.3 % (0.0-1.0); EOS % 0.1 % (0.0-3.0); HEMATOCRIT 25.7 % (42.0-52.0); LYMPH # 1.2 10^3/uL (1.5-5.0); LYMPH % 11.6 % (24.0-44.0); MEAN CORPUSCULAR HEMOGLOBIN 32.2 pg (27.0-33.0); MEAN CORPUSCULAR HGB CONC 33.5 g/dl (32.0-36.5); MEAN CORPUSCULAR VOLUME 96.3 fl (80.0-96.0); MONO % 9.3 % (0.0-5.0); NEUTROPHILS # 8.3 10^3/uL (1.5-8.5); NEUTROPHILS % 78.2 % (36.0-66.0); PLATELET COUNT, AUTOMATED 162 10^3/uL (150-450); RED BLOOD COUNT 2.67 10^6/uL (4.30-6.10); WHITE BLOOD COUNT 10.6 10^3/uL (4.0-10.0)
[2020-12-13] MEDS: KETOROLAC 30 MG/ML 1ML VIAL IV PRN ×2 (05:05→23:16)
[2020-12-13 05:08] LABS: HEMOGLOBIN 8.6 g/dl (13.5-17.5)
[2020-12-13] MEDS: ACETAMINOPHEN 650MG ER TAB (TYLENOL ARTHRITIS) PO SCH ×2 (05:19→12:18)
[2020-12-13 05:27] LABS: BLOOD UREA NITROGEN 13 MG/DL (7-18); CALCIUM LEVEL 8.3 MG/DL (8.8-10.2); CARBON DIOXIDE LEVEL 26 MEQ/L (21-32); CHLORIDE LEVEL 98 MEQ/L (98-107); GLOMERULAR FILTRATION RATE > 60.0 (>42); GLUCOSE, FASTING 99 MG/DL (70-100); POTASSIUM SERUM 4.4 MEQ/L (3.5-5.1); SODIUM LEVEL 131 MEQ/L (136-145)
[2020-12-13 05:28] LABS: ALBUMIN 2.7 GM/DL (3.2-5.2); ALT/SGPT 26 U/L (12-78); BILIRUBIN,TOTAL 0.7 MG/DL (0.2-1.0); TOTAL PROTEIN 4.5 GM/DL (6.4-8.2)
[2020-12-13 05:35] LABS: PERCENT SATURATION 19.9 % (19.7-50.0); THYROID STIMULATING HORMONE 0.93 uIU/ML (0.358-3.740)
[2020-12-13] MEDS ORDERED: LORazepam 2 MG/ML VIAL IV STA (06:05)
[2020-12-13] MEDS ORDERED: LORazepam 2 MG/ML VIAL IM STA (06:07)
[2020-12-13] MEDS ORDERED: SLF 3 ML SYR IV PRN (08:00)
--- NOTE | 2020-12-13 08:07 | REP ---
INDICATION: follow chest tube COMPARISON: 12/12/2020 TECHNIQUE: Portable AP view of the chest FINDINGS: Right chest tube in stable position. Extensive diffuse bilateral subcutaneous emphysema essentially unchanged. Underlying right pneumothorax cannot be excluded. Lung howe are otherwise relatively stable although evaluation is limited due to subcutaneous emphysema and subtle right basilar atelectasis cannot be excluded. Mediastinum and cardiac silhouette within normal limits and stable. IMPRESSION: Extensive subcutaneous emphysema unchanged. Cannot exclude small right apical pneumothorax. Cannot exclude minimal right basilar atelectasis. <Electronically signed by Isac Avalos > 12/13/20 0803
[2020-12-13] MEDS: FERROUS SULFATE 325MG TAB PO SCH ×2 (09:53→20:32)
[2020-12-13] MEDS: PANTOPRAZOLE 40MG VIAL (C9113 PER 1) IV SCH (09:53)
[2020-12-13] MEDS: DOCUSATE SODIUM 100MG CAPSULE PO SCH ×2 (09:54→20:32)
[2020-12-13] MEDS: FOLIC ACID 1 MG TAB PO SCH (09:54)
[2020-12-13] MEDS: atenoloL 50 MG TAB PO SCH (09:54)
[2020-12-13] MEDS: MULTIVITAMINS/MINERALS THERAP 1 TAB PO SCH (09:54)
[2020-12-13] MEDS: THIAMINE 100 MG TAB PO SCH ×2 (09:54→20:32)
[2020-12-13 10:24] LABS: FOLATE 12.9 NG/ML (>5.4)
--- NOTE | 2020-12-13 11:28 | IPN ---
PROGRESS NOTE DATE: 12/12/2020 SUBJECTIVE: The patient was admitted yesterday following a fall at home in which he broke four right posterior ribs and developed a hemopneumothorax. A chest tube was placed. His lung expanded well and he drained approximately 600 ml of blood immediately. He had extensive subcutaneous soft tissue emphysema which has improved somewhat since admission. PHYSICAL EXAMINATION: Vital signs shows that he has been afebrile over the past 24 hours. His pulse has been in the 60s and 70s primarily. His blood pressure is acceptable, although it has been slightly elevated at times shortly after admission. Intake and output shows that yesterday he had only 1000 recorded in although I think this may underestimate his actual intake. He had 600 ml of chest tube drainage and there is no urine output recorded. The patient is lying propped up in his hospital bed. The swelling of his face is clearly markedly improved although he still has some gas noted within his eyelids and in portions of the face. He is able to see today, however. He is not complaining of any significant pain currently except in his right back where the ribs are fractured. Heart exam shows a regular rhythm. Lung exam is difficult as he has significant sounds from the subcutaneous emphysema but he does appear to have bilateral breath sounds. The abdomen is soft and nontender. His chest tube has a total of approximately 640 to 650 ml of bloody fluid in the cannister. There is some tidaling with respiration. There is no evidence of air leak. IMPRESSION: The patient appears to be doing fairly well from his injuries. He has used very little pain medicine which I think is surprising. He does not appear to have any ongoing drainage of blood from his chest tube and there is no evident air leak. His soft tissue emphysema is improved significantly but certainly still present. I did discuss with him that his alcohol level was significant at the time of admission and asked about his alcohol intake normally. He admits to drinking a couple of beers daily and is pretty much a daily drinker. I advised him that the alcohol level at the time of admission suggested much more than a couple of beers and he advised that he was not going to argue with me about it but would defer to my impression. PLAN: Patient will continue with his chest tube to suction for now. He will remain on some nasal cannula oxygen. Because of the likely high ongoing use of alcohol, I will put him on the alcohol withdrawal protocol to try to prevent problems with significant alcohol withdrawal symptoms. I will start him on some clear liquids and advance his diet as tolerated. JOHNNY
--- NOTE | 2020-12-13 13:42 | IPNPDOC ---
Date Seen The patient was seen on 12/13/20. Progress Note SUBJECTIVE: H/H decreased, CBC q12H. More awake today, had received ativan overnight. Does not appear tremulous, diaphoretic. Denies increased shortness of breath, n/v, fevers or chills. OBJECTIVE: PHYSICAL EXAMINATION: VITAL SIGNS: Please see below. GENERAL APPEARANCE: lethargic but when awakened does not remember events prior to admission, can tell me name, birthdate, city HEENT: has periorbital swelling (per RN this has improved since admission), facial crepitus CARDIOVASCULAR: RRR/NMRG LUNGS: crepitus in bilateral chest, upper arms, face. chest tube at right side draining serosanguineous fluid / breath sounds diminished on the right / right chest tender with palpation ABDOMEN: obese MUSCULOSKELETAL: ROM not tested NEUROLOGICAL: speech not dysarthric, weak 4/5 in all extremities but follows all commands. No CN deficits PSYCHIATRIC: Flat affect LABORATORY DATA: see below IMAGING: Chest xray Dec 11 IMPRESSION: Extensive diffuse bilateral subcutaneous extrathoracic emphysema consistent with pulmonary barotrauma. There appear to be 2 right-sided rib fractures, 9 in 10. Recommend chest CT. CT head ...Brain: The brain demonstrates generalized volume loss. No hemo rrhage or edema seen. Cerebral ventricles: The ventricles are mildly enlarged in keeping with volume loss. ...IMPRESSION: No acute intracranial abnormality seen CT neck IMPRESSION: No cervical spine fracture seen. CT chestIMPRESSION: 1. Very large 70% pneumothorax on the right and this is a t ension pneumothorax with shift of the mediastinal structures and heart to the left. Massive amount of pneumomediastinum and loculated air anterior to the cardiac silhouette. 2. Massive subcutaneous air throughout the chest and abdomen. 3. Fracture of the posterior aspect of the right 9th, 10th, 11th, and 12th ribs with offset fractures at several areas and probably the source of the pneumothorax. CT abd/pelvis IMPRESSION: 1. Severe distension of the stomach with secretions and an air-fluid level. 2. Numerous posterior rib fractures on the right with a moderate right pleural effusion probably serous fluid. 3. 70% tension pneumothorax on the right. 4. Subcutaneous air throughout the chest, abdomen , pelvis and scrotum. 5. Left inguinal hernia with a loop of colon extending into this left inguinal hernia. No obstruction at this time but this would be concern. 6. Enlargement of the prostate with a lobulation impressing on the floor of the urinary bladder. Considerations include hypertrophy and malignancy. MICROBIOLOGY: RESPIRATORY PANEL NEGATIVE by MULTIPLEXED NUCLEIC ACID PCR ASSESSMENT: is a 75 yr old M w a hx of NIDDM2 HTN DLP GERD OA Essential tremor who was admitted for management of hydropneumothorax after falling and sustaining multiple right sided rib fractures and had a chest tube placed; we were consulted to evaluate the patient bc possible alcohol w/d. PLAN: Encephalopathy likely multifactorial to alcohol intoxication, possible early withdrawl, sleep deprivation, possibly pain being uncontrolled -More awake and oriented this AM -C/w current pain regimen, CIWA protocol, ativan PRN, can add something for sleep if needed but for now will hold off. -Monitor VS and daily labs closely Right side hemopneumothorax 2/2 to intoxicated fall, 4 rib fractures -CT chest above -Chest tube in place on right chest -C/w plan per surgery -Changed to CBC Q12 Hrs, as H/H dropping -Tele, currently on RA Acute on chronic KAREN, Vitamin B12 anemia likely 2/2 to bleeding, hemopneumothorax -Surgery management of hemopneumothorax -CBC Q12H -Type and screen -On ferrous sulfate BID, vitamin B12 supplement -Transfuse if Hgb <7 Alcohol abuse, possibly withdrawl -CIWA protocol, thiamine, folate, MV, ativan PRN Mild Hyponatremia possibly 2/2 to beer potomania -f/u Uosmo, serum osmol, Mallika & trend Na BPH -F/u w PCP for prostate cancer screening DVT px -SCD, teds VS, I&O, 24H, Fishbone Vital Signs/I&O Vital Signs Date Time Temp Pulse Resp B/P (MAP) Pulse Ox O2 Delivery O2 Flow Rate FiO2 12/13/20 11:49 97.8 54 18 142/67 (92) 99 Room Air 12/12/20 20:00 2.0 I&O- Last 24 Hours up to 6 AM 12/13/20 05:59 Intake Total 860 ml Output Total 75 ml Balance 785 ml Laboratory Data 24H LABS Laboratory Tests 2 12/12/20 14:20: Lactic Acid Followup at 4 Hours 2.7*H 12/12/20 18:21: Bedside Glucose (Misc Panel) 121H 12/12/20 23:38: Bedside Glucose (Misc Panel) 144H 12/13/20 03:45: Immature Granulocyte % (Auto) 0.5, Neutrophils (%) (Auto) 78.2H, Lymphocytes (%) (Auto) 11.6L, Monocytes (%) (Auto) 9.3H, Eosinophils (%) (Auto) 0.1, Basophils (%) (Auto) 0.3, Neutrophils # (Auto) 8.3, Lymphocytes # (Auto) 1.2L, Monocytes # (Auto) 1.0H, Eosinophils # (Auto) 0.0, Basophils # (Auto) 0.0, Nucleated Red Blood Cells % (auto) 0.0, Anion Gap 7L, Glomerular Filtration Rate > 60.0, Calcium Level 8.3L, Iron Level 39L, Total Iron Binding Capacity 196L, Transferrin % Saturation 19.9, Ferritin 134, Total Bilirubin 0.7#, Aspartate Amino Transf (AST/SGOT) 25, Alanine Aminotransferase (ALT/SGPT) 26, Alkaline Phosphatase 40L, Total Protein 4.5#L, Albumin 2.7#L, Albumin/Globulin Ratio 1.5, Vitamin B12 Level 203L, Folate 12.9, Thyroid Stimulating Hormone (TSH) 0.930 12/13/20 05:12: Bedside Glucose (Misc Panel) 106 12/13/20 05:14: Osmolality 265L 12/13/20 08:09: Lactic Acid Level 1.2 12/13/20 11:55: Bedside Glucose (Misc Panel) 98 CBC/BMP Laboratory Tests 12/13/20 03:45 Microbiology Microbiology 12/12/20 Blood Culture, Received Pending 12/11/20 Respiratory Virus Panel (PCR) ([facility]) - Final, Complete Current Medications Current Medications Medications (Trade) Dose Ordered Sig/Marlyn Route PRN Reason Start Time Stop Time Status Last Admin Dose Admin Acetaminophen (Tylenol Arthritis Er) 1,300 mg Q8H PO 12/12/20 22:00 12/13/20 21:59 12/13/20 12:18 Acetaminophen (Tylenol Tab) 650 mg Q4HP PRN PO MILD PAIN or TEMP > 101 12/11/20 19:45 Hold Atenolol (Tenormin) 50 mg DAILY PO 12/12/20 13:00 12/13/20 09:54 Docusate Sodium (Colace) 100 mg BID PO 12/11/20 21:00 12/13/20 09:54 Ferrous Sulfate (Ferrous Sulfate) 325 mg BID PO 12/13/20 09:00 12/13/20 09:53 Folic Acid (Folic Acid) 1 mg DAILY PO 12/12/20 09:00 12/13/20 09:54 Home Med (Med Rec Complete!) ASDIRECTED XX 12/11/20 19:45 12/11/20 19:41 DC Insulin Human Lispro (HumaLOG INSULIN) SEE PROTOCOL TABLE Q6H SC 12/12/20 00:00 12/13/20 05:19 Ketorolac Tromethamine (ToRADol) 30 mg Q6HP PRN IV MODERATE PAIN (PS 5-7) 12/11/20 19:45 12/16/20 19:44 12/13/20 05:05 Lactated Ringer's 1,000 ml @ 125 mls/hr Q8H IV 12/11/20 19:41 12/12/20 17:05 DC 12/12/20 11:41 Lorazepam (Ativan) 2 mg ASDIRECTED PRN PO SEE PROTOCOL 12/12/20 12:45 12/12/20 19:37 DC 12/12/20 16:48 Lorazepam (Ativan) 2 mg ASDIRECTED PRN PO SEE PROTOCOL 12/12/20 20:00 12/12/20 22:10 Lorazepam (Ativan) 2 mg Q2HP PRN IV PER CIWA PROTOCOL 12/12/20 19:45 12/12/20 20:00 DC Lorazepam (Ativan) 2 mg STAT STAT IM 12/13/20 06:07 12/13/20 06:08 DC 12/13/20 06:13 Lorazepam (Ativan) 2 mg STAT STAT IV 12/13/20 06:05 12/13/20 06:08 DC Morphine Sulfate (Morphine Sulfate Inj) 2 mg Q2H PRN IV BREAKTHROUGH PAIN 12/11/20 19:45 Morphine Sulfate (Morphine Sulfate Inj) 2 mg Q30M PRN IV MODERATE PAIN (PS 5-7) 12/11/20 19:00 12/11/20 19:17 DC 12/11/20 19:17 Multivitamins (Theragram-M) 1 tab DAILY PO 12/12/20 09:00 12/13/20 09:54 Ondansetron HCl (ZOFRAN INJection) 4 mg Q6HP PRN IV NAUSEA OR VOMITING 12/11/20 19:45 Oxycodone HCl (Roxicodone, Oxyir) 5 mg Q4H PRN PO SEVERE PAIN (PS 8-10) 12/11/20 19:45 12/12/20 00:53 Pantoprazole Sodium (Protonix) 40 mg DAILY IV 12/12/20 09:00 12/13/20 09:53 Ramelteon (Rozerem) 8 mg QHS PO 12/12/20 21:00 12/12/20 21:33 Simvastatin (Zocor) 40 mg QHS PO 12/12/20 21:00 12/12/20 21:33 Sodium Chloride (Saline Lock Flush) 2 ml ASDIRECTED PRN IV SEE LABEL COMMENTS 12/13/20 08:00 Sodium Chloride (Saline Lock Flush) 2 ml SLF IV 12/13/20 14:00 Thiamine HCl (Thiamine HCl) 100 mg BID PO 12/12/20 13:00 12/14/20 21:01 12/13/20 09:54 Allergies Coded Allergies: No Known Drug Allergies (Verified Allergy, Unknown, 12/11/20) Charlene Hernandez MD Dec 13, 2020 13:42
[2020-12-13] MEDS: SLF 3 ML SYR IV SCH ×2 (14:47→20:34)
[2020-12-13] MEDS: CYANOCOBALAMIN 500 MCG TAB PO SCH (16:11)
[2020-12-13 16:29] LABS: HEMATOCRIT 24.3 % (42.0-52.0); HEMOGLOBIN 8.4 g/dl (13.5-17.5); MEAN CORPUSCULAR HEMOGLOBIN 33.2 pg (27.0-33.0); MEAN CORPUSCULAR HGB CONC 34.6 g/dl (32.0-36.5); PLATELET COUNT, AUTOMATED 153 10^3/uL (150-450); RED BLOOD COUNT 2.53 10^6/uL (4.30-6.10); WHITE BLOOD COUNT 9.2 10^3/uL (4.0-10.0)
[2020-12-13 17:13] LABS: SODIUM,RANDOM URINE 21 MEQ/L
--- NOTE | 2020-12-13 18:22 | IPN ---
PROGRESS NOTE DATE: 12/13/2020 SUBJECTIVE: The patient is now postop day #2 from placement of chest tube for a right hemopneumothorax secondary to multiple rib fractures from a fall. Yesterday evening, he became somewhat more agitated, suggesting some alcohol withdrawal. I requested a hospitalist consult last evening. They provided him with a sleep aid and otherwise concurred with the need for the alcohol withdrawal protocol. He has received three doses of Ativan, the most recent early this morning as an I.M. dose. Vital signs show that he has been afebrile over the past 24 hours. His pulse has generally been in the 50s to low 60s. His blood pressure is good. Intake and output show that yesterday he had 1000 ml in, 500 of which was oral. He had 500 of urine output. He had about 75 ml out in his chest tube. His Pleur-evac was changed last night after it was tipped over when he became agitated. He has a minimal amount of fluid in the drainage container today. PHYSICAL EXAMINATION: The patient is mildly sedated at present. He does respond to voice and answers questions appropriately. He denies any significant pain. His subcutaneous emphysema has resolved significantly, particularly in the face, but there is still some palpable subcutaneous air in the chest wall. Heart examination shows a regular rate and rhythm. He has bilateral breath sounds, which are more easily heard today with diminished subcutaneous air. His chest tube shows no evidence of air leak and there is minimal serosanguinous fluid in the tubing. The abdomen is soft and nontender. LABORATORY STUDIES: Today show a white count of 11, hemoglobin 9, hematocrit 26 and a platelet count of 162,000. His differential count shows 78% neutrophils, 12% lymphocytes and 9% monocytes. Chemistry profile this morning showed sodium of 131, potassium 4.4, chloride 98, Co2 of 26, BUN of 13, creatinine 0.7 and a glucose of 99. Liver function tests were unremarkable. Total protein and albumin were low at 4.5 and 2.7 respectively. His morning fingerstick was 106. Chest x-ray this morning showed diminished, but still prominent subcutaneous air. I believe the lungs are both fully inflated with the chest tube in unchanged position on the right. IMPRESSION: 1. Hemopneumothorax now resolved with chest tube drainage. 2. Right rib fractures. 3. Anemia secondary to blood loss. This is partially blood drained through his chest tube, which was approximately 600 ml, but he also has fairly extensive bruising of the right flank and back. 4. Agitation likely representing a degree of alcohol withdrawal. PLAN: The patient will be advanced to a regular diet. We will continue the alcohol protocol for now. I will put his chest tube to water-seal as he has no sign of air leak. Likely his chest tube can be removed tomorrow. I will request a physical therapy consultation to try to get him up and moving a bit. I had a nice phone call with his to discuss his progress to this point. JOHNNY
[2020-12-13 18:53] LABS: OSMOLALITY URINE 530 MOSM/KG (500-800)
[2020-12-13] MEDS: SIMVASTATIN 40 MG TAB PO SCH (20:32)
[2020-12-13] MEDS: RAMELTEON 8 MG TAB (ROZEREM) PO SCH (20:32)
[2020-12-13] MEDS: oxyCODONE 5MG TAB PO PRN (20:33)
[2020-12-13] MEDS ORDERED: DEXTROSE 50% 50 ML SYRINGE IV PRN (23:45)
[2020-12-13] MEDS ORDERED: GLUCOSE 4GM CHEW TABLET PO PRN (23:45)
[2020-12-13] MEDS ORDERED: GLUCAGON INJ 1MG VIAL SC PRN (23:45)
[2020-12-14] VITALS (10 sets, daily range): BP systolic 132–180; BP diastolic 60–82
[2020-12-14] MEDS: SLF 3 ML SYR IV SCH ×3 (05:08→21:17)
[2020-12-14 05:47] LABS: HEMOGLOBIN 8.9 g/dl (13.5-17.5); MEAN CORPUSCULAR HGB CONC 34.2 g/dl (32.0-36.5); MEAN CORPUSCULAR VOLUME 96.3 fl (80.0-96.0); PLATELET COUNT, AUTOMATED 167 10^3/uL (150-450); WHITE BLOOD COUNT 7.4 10^3/uL (4.0-10.0)
[2020-12-14 06:13] LABS: BLOOD UREA NITROGEN 10 MG/DL (7-18); CALCIUM LEVEL 8.4 MG/DL (8.8-10.2); CARBON DIOXIDE LEVEL 26 MEQ/L (21-32); CHLORIDE LEVEL 102 MEQ/L (98-107); GLOMERULAR FILTRATION RATE > 60.0 (>42); GLUCOSE, FASTING 117 MG/DL (70-100); POTASSIUM SERUM 4.1 MEQ/L (3.5-5.1); SODIUM LEVEL 135 MEQ/L (136-145)
[2020-12-14] MEDS: HumaLOG INSULIN (NovoLOG) PER UNIT SC SCH ×5 (07:30→20:47)
[2020-12-14] MEDS: FERROUS SULFATE 325MG TAB PO SCH ×2 (08:07→20:47)
[2020-12-14] MEDS: THIAMINE 100 MG TAB PO SCH ×2 (08:07→20:47)
[2020-12-14] MEDS: CYANOCOBALAMIN 500 MCG TAB PO SCH (08:07)
[2020-12-14] MEDS: PANTOPRAZOLE 40MG VIAL (C9113 PER 1) IV SCH (08:07)
[2020-12-14] MEDS: FOLIC ACID 1 MG TAB PO SCH (08:07)
[2020-12-14] MEDS: DOCUSATE SODIUM 100MG CAPSULE PO SCH ×2 (08:08→20:47)
[2020-12-14] MEDS: KETOROLAC 30 MG/ML 1ML VIAL IV PRN ×2 (08:08→17:01)
[2020-12-14] MEDS: MULTIVITAMINS/MINERALS THERAP 1 TAB PO SCH (08:08)
[2020-12-14] MEDS: oxyCODONE 5MG TAB PO PRN ×2 (08:19→17:01)
[2020-12-14] MEDS: atenoloL 50 MG TAB PO SCH (08:20)
--- NOTE | 2020-12-14 08:29 | REP ---
INDICATION: follow chest tube. COMPARISON: Comparison study 13 December 2020. TECHNIQUE: Two views.. FINDINGS: A right chest tube is noted in place in a slightly more lateral position than on yesterday's radiograph. There is extensive extra thoracic soft tissue emphysema. There is node definite pneumothorax. Very slight blunting of the lateral pleural angles. Cardiomediastinal silhouette is unremarkable. No infiltrate is appreciated. Pulmonary vasculature is not increased. IMPRESSION: Right chest tube in place. Extensive subcu emphysema in the extra thoracic soft tissues. Lung howe unchanged.. <Electronically signed by Ronald Kumar > 12/14/20 [id number]
--- NOTE | 2020-12-14 13:09 | IPNPDOC ---
Date Seen The patient was seen on 12/14/20. Progress Note SUBJECTIVE: H/H slightly improved, more awake this AM, Ox3, alert. Last dose ativan on 12/12/20. Right side chest tube still present, less serosanguinous drainage in bedside container. Denies increased shortness of breath, n/v, fevers or chills. OBJECTIVE: PHYSICAL EXAMINATION: VITAL SIGNS: Please see below. GENERAL APPEARANCE: NAD, resting in bed, AAOx3 HEENT: has periorbital swelling (per RN this has improved since admission), facial crepitus has improved CARDIOVASCULAR: RRR/NMRG LUNGS: crepitus in bilateral chest, upper arms. chest tube at right side draining serosanguineous fluid / breath sounds diminished on the right / right chest tender with palpation. Improved aeration b/l ABDOMEN: obese, BS + in 4 quadrant MUSCULOSKELETAL: ROM not tested NEUROLOGICAL: speech not dysarthric, weak 4/5 in all extremities but follows all commands. No CN deficits PSYCHIATRIC: mood and affect appropriate LABORATORY DATA: see below IMAGING: CXR 12/14/20: Right chest tube in place. Extensive subcu emphysema in the extra thoracic soft tissues. Lung howe unchanged. Chest xray Dec 11 IMPRESSION: Extensive diffuse bilateral subcutaneous extrathoracic emphysema consistent with pulmonary barotrauma. There appear to be 2 right-sided rib fractures, 9 in 10. Recommend chest CT[address] CT head ...Brain: The brain demonstrates generalized volume loss. No hemorrhage or edema seen. Cerebral ventricles: The ventricles are mildly enlarged in keeping with volume loss. ...IMPRESSION: No acute intracranial abnormality seen CT neck IMPRESSION: No cervical spine fracture seen. CT chestIMPRESSION: 1. Very large 70% pneumothorax on the right and this is a tension pneumothorax with shift of the mediastinal structures and heart to the left. Massive amount of pneumomediastinum and loculated air anterior to the cardiac silhouette. 2. Massive subcutaneous air throughout the chest and abdomen. 3. Fracture of the posterior aspect of the right 9th, 10th, 11th, and 12th ribs with offset fractures at several areas and probably the source of the pneumothorax. CT abd/pelvis IMPRESSION: 1. Severe distension of the stomach with secretions and an air-fluid level. 2. Numerous posterior rib fractures on the right with a moderate right pleural effusion probably serous fluid. 3. 70% tension pneumothorax on the right. 4. Subcutaneous air throughout the chest, abdomen , pelvis and scrotum. 5. Left inguinal hernia with a loop of colon extending into this left inguinal hernia. No obstruction at this time but this would be concern. 6. Enlargement of the prostate with a lobulation impressing on the floor of the urinary bladder. Considerations include hypertrophy and malignancy. MICROBIOLOGY: RESPIRATORY PANEL NEGATIVE by MULTIPLEXED NUCLEIC ACID PCR ASSESSMENT: is a 75 yr old M w a hx of NIDDM2 HTN DLP GERD OA Essential tremor who was admitted for management of hydropneumothorax after falling and sustaining multiple right sided rib fractures and had a chest tube placed; we were consulted to evaluate the patient bc possible alcohol w/d. PLAN: Right side hemopneumothorax 2/2 to intoxicated fall, 4 rib fractures -CT chest, today's CXR above -Chest tube in place on right chest, less drainage overnight to bedside container -Subcutaneous emphysema appears to be improving slowly -Plan per surgery: keep chest tube in one more day, likely removing on 12/15/20 -H/H stabilized -Daily labs, close monitoring on tele, currently on RA Acute on chronic KAREN, Vitamin B12 anemia likely 2/2 to bleeding, hemopneumothorax -Surgery management of hemopneumothorax -Low Vit B12 and iron -On ferrous sulfate BID, vitamin B12 supplement -Transfuse if Hgb <7 -Daily CBC Alcohol abuse -Currently no s/s of withdrawl, last does of ativan on 12/12/20 -CIWA protocol, thiamine, folate, MV, ativan PRN Mild Hyponatremia possibly 2/2 to beer potomania - improving slowly -Daily labs BPH -F/u w PCP for prostate cancer screening DVT px -SCD, teds Resolved issues: Encephalopathy likely multifactorial to alcohol intoxication, sleep deprivation VS, I&O, 24H, Fishbone Vital Signs/I&O Vital Signs Date Time Temp Pulse Resp B/P (MAP) Pulse Ox O2 Delivery O2 Flow Rate FiO2 12/14/20 12:41 148/70 (96) 12/14/20 12:11 99.2 67 18 97 Room Air 12/12/20 20:00 2.0 I&O- Last 24 Hours up to 6 AM 12/14/20 06:00 Intake Total 120 ml Output Total 1560 ml Balance -1440 ml Laboratory Data 24H LABS Laboratory Tests 2 12/13/20 16:00: Nucleated Red Blood Cells % (auto) 0.0 12/13/20 16:28: Urine Random Osmolality 530, Urine Random Sodium 21 12/13/20 17:52: Bedside Glucose (Misc Panel) 103 12/13/20 23:20: Bedside Glucose (Misc Panel) 127H 12/14/20 05:23: Nucleated Red Blood Cells % (auto) 0.0, Anion Gap 7L, Glomerular Filtration Rate > 60.0, Calcium Level 8.4L 12/14/20 11:30: Bedside Glucose (Misc Panel) 199H CBC/BMP Laboratory Tests 12/13/20 16:00 12/14/20 05:23 Microbiology Microbiology 12/12/20 Blood Culture - Preliminary, Resulted No growth after 24 hours . All specim... 12/11/20 Respiratory Virus Panel (PCR) ([facility]) - Final, Complete Current Medications Current Medications Medications (Trade) Dose Ordered Sig/Marlyn Route PRN Reason Start Time Stop Time Status Last Admin Dose Admin Acetaminophen (Tylenol Arthritis Er) 1,300 mg Q8H PO 12/12/20 22:00 12/13/20 21:59 DC 12/13/20 12:18 Acetaminophen (Tylenol Tab) 650 mg Q4HP PRN PO MILD PAIN or TEMP > 101 12/11/20 19:45 Atenolol (Tenormin) 50 mg DAILY PO 12/12/20 13:00 12/14/20 08:20 Cyanocobalamin (Vitamin B12) 500 mcg DAILY PO 12/13/20 09:00 12/14/20 08:07 Dextrose (Dextrose 50%) 25 ml ASDIRECTED PRN IV SEE LABEL COMMENTS 12/13/20 23:45 Docusate Sodium (Colace) 100 mg BID PO 12/11/20 21:00 12/14/20 08:08 Ferrous Sulfate (Ferrous Sulfate) 325 mg BID PO 12/13/20 09:00 12/14/20 08:07 Folic Acid (Folic Acid) 1 mg DAILY PO 12/12/20 09:00 12/14/20 08:07 Glucagon (Glucagon) 1 mg ASDIRECTED PRN SC SEE LABEL COMMENTS 12/13/20 23:45 Glucose (Glucose) 16 GM ASDIRECTED PRN PO SEE LABEL COMMENTS 12/13/20 23:45 Home Med (Med Rec Complete!) ASDIRECTED XX 12/11/20 19:45 12/11/20 19:41 DC Insulin Human Lispro (HumaLOG INSULIN) SEE PROTOCOL TABLE AC HI 12/14/20 07:30 12/14/20 12:30 Insulin Human Lispro (HumaLOG INSULIN) SEE PROTOCOL TABLE Q6H HI 12/12/20 00:00 12/13/20 23:43 DC 12/13/20 05:19 Insulin Human Lispro (HumaLOG INSULIN) SEE PROTOCOL TABLE QHS HI 12/13/20 21:00 Ketorolac Tromethamine (ToRADol) 30 mg Q6HP PRN IV MODERATE PAIN (PS 5-7) 12/11/20 19:45 12/16/20 19:44 12/14/20 08:08 Lactated Ringer's 1,000 ml @ 125 mls/hr Q8H IV 12/11/20 19:41 12/12/20 17:05 DC 12/12/20 11:41 Lorazepam (Ativan) 2 mg ASDIRECTED PRN PO SEE PROTOCOL 12/12/20 12:45 12/12/20 19:37 DC 12/12/20 16:48 Lorazepam (Ativan) 2 mg ASDIRECTED PRN PO SEE PROTOCOL 12/12/20 20:00 12/12/20 22:10 Lorazepam (Ativan) 2 mg Q2HP PRN IV PER BILLWA PROTOCOL 12/12/20 19:45 12/12/20 20:00 DC Lorazepam (Ativan) 2 mg STAT STAT IM 12/13/20 06:07 12/13/20 06:08 DC 12/13/20 06:13 Lorazepam (Ativan) 2 mg STAT STAT IV 12/13/20 06:05 12/13/20 06:08 DC Morphine Sulfate (Morphine Sulfate Inj) 2 mg Q2H PRN IV BREAKTHROUGH PAIN 12/11/20 19:45 Morphine Sulfate (Morphine Sulfate Inj) 2 mg Q30M PRN IV MODERATE PAIN (PS 5-7) 12/11/20 19:00 12/11/20 19:17 DC 12/11/20 19:17 Multivitamins (Theragram-M) 1 tab DAILY PO 12/12/20 09:00 12/14/20 08:08 Ondansetron HCl (ZOFRAN INJection) 4 mg Q6HP PRN IV NAUSEA OR VOMITING 12/11/20 19:45 Oxycodone HCl (Roxicodone, Oxyir) 5 mg Q4H PRN PO SEVERE PAIN (PS 8-10) 12/11/20 19:45 12/14/20 08:19 Pantoprazole Sodium (Protonix) 40 mg DAILY IV 12/12/20 09:00 12/14/20 08:07 Ramelteon (Rozerem) 8 mg QHS PO 12/12/20 21:00 12/13/20 20:32 Simvastatin (Zocor) 40 mg QHS PO 12/12/20 21:00 12/13/20 20:32 Sodium Chloride (Saline Lock Flush) 2 ml ASDIRECTED PRN IV SEE LABEL COMMENTS 12/13/20 08:00 Sodium Chloride (Saline Lock Flush) 2 ml SLF IV 12/13/20 14:00 12/14/20 05:08 Thiamine HCl (Thiamine HCl) 100 mg BID PO 12/12/20 13:00 12/14/20 21:01 12/14/20 08:07 Allergies Coded Allergies: No Known Drug Allergies (Verified Allergy, Unknown, 12/11/20) Charlene Hernandez MD Dec 14, 2020 13:09
[2020-12-14] MEDS: RAMELTEON 8 MG TAB (ROZEREM) PO SCH (20:46)
[2020-12-14] MEDS: SIMVASTATIN 40 MG TAB PO SCH (20:47)
[2020-12-15] VITALS (10 sets, daily range): BP systolic 138–175; BP diastolic 57–88
[2020-12-15] MEDS: KETOROLAC 30 MG/ML 1ML VIAL IV PRN ×2 (00:47→12:10)
[2020-12-15] MEDS: LORazepam 2 MG TAB PO PRN ×3 (03:03→13:47)
[2020-12-15] MEDS: SLF 3 ML SYR IV SCH ×3 (05:05→21:57)
[2020-12-15 06:28] LABS: HEMATOCRIT 24.6 % (42.0-52.0); HEMOGLOBIN 8.2 g/dl (13.5-17.5); MEAN CORPUSCULAR HEMOGLOBIN 31.9 pg (27.0-33.0); MEAN CORPUSCULAR HGB CONC 33.3 g/dl (32.0-36.5); MEAN CORPUSCULAR VOLUME 95.7 fl (80.0-96.0); PLATELET COUNT, AUTOMATED 200 10^3/uL (150-450); RED BLOOD COUNT 2.57 10^6/uL (4.30-6.10); WHITE BLOOD COUNT 7.3 10^3/uL (4.0-10.0)
[2020-12-15 06:48] LABS: BLOOD UREA NITROGEN 10 MG/DL (7-18); CALCIUM LEVEL 8.6 MG/DL (8.8-10.2); CARBON DIOXIDE LEVEL 27 MEQ/L (21-32); CHLORIDE LEVEL 103 MEQ/L (98-107); CREATININE FOR GFR 0.76 MG/DL (0.70-1.30); GLOMERULAR FILTRATION RATE > 60.0 (>42); GLUCOSE, FASTING 145 MG/DL (70-100); POTASSIUM SERUM 3.9 MEQ/L (3.5-5.1); SODIUM LEVEL 136 MEQ/L (136-145)
--- NOTE | 2020-12-15 08:10 | REP ---
INDICATION: follow chest tube. COMPARISON: Comparison chest x-ray 14 December 2020. TECHNIQUE: Portable upright AP chest radiograph. FINDINGS: A right chest tube is again seen in place. There is no visible pneumothorax or infiltrate. There is extensive extra thoracic soft tissue emphysema again noted diffusely and bilaterally. Monitoring electrodes are seen. Heart is not enlarged.. IMPRESSION: Right chest tube remains in place. Extensive extra thoracic soft tissue emphysema is seen. No visible infiltrate or pneumothorax.. <Electronically signed by Ronald Kumar > 12/15/20 0886
[2020-12-15] MEDS: PANTOPRAZOLE 40MG VIAL (C9113 PER 1) IV SCH (08:13)
[2020-12-15] MEDS: FOLIC ACID 1 MG TAB PO SCH (08:13)
[2020-12-15] MEDS: CYANOCOBALAMIN 500 MCG TAB PO SCH (08:14)
[2020-12-15] MEDS: FERROUS SULFATE 325MG TAB PO SCH ×2 (08:14→22:06)
[2020-12-15] MEDS: atenoloL 50 MG TAB PO SCH (08:14)
[2020-12-15] MEDS: DOCUSATE SODIUM 100MG CAPSULE PO SCH ×2 (08:14→22:06)
[2020-12-15] MEDS: MULTIVITAMINS/MINERALS THERAP 1 TAB PO SCH (08:15)
[2020-12-15] MEDS: HumaLOG INSULIN (NovoLOG) PER UNIT SC SCH ×4 (08:15→21:00)
[2020-12-15] MEDS: oxyCODONE 5MG TAB PO PRN ×2 (12:11→22:07)
--- NOTE | 2020-12-15 12:40 | IPNPDOC ---
Date Seen The patient was seen on 12/15/20. Progress Note SUBJECTIVE: H/H slightly decreased. Possible to take chest tube out per surgery. Denies increased shortness of breath, n/v, fevers or chills. OBJECTIVE: PHYSICAL EXAMINATION: VITAL SIGNS: Please see below. GENERAL APPEARANCE: NAD, resting in bed, AAOx3 HEENT: decreased periorbital/facial swelling , facial crepitus has improved CARDIOVASCULAR: RRR/NMRG LUNGS: crepitus in bilateral chest, upper arms- improving . chest tube at right side draining serosanguineous fluid / breath sounds diminished on the right / right chest tender with palpation. Improved aeration b/l ABDOMEN: obese, BS + in 4 quadrant MUSCULOSKELETAL: ROM not tested NEUROLOGICAL: speech not dysarthric, weak 4/5 in all extremities but follows all commands. No CN deficits PSYCHIATRIC: mood and affect appropriate LABORATORY DATA: see below IMAGING: CXR 12/15/20: Right chest tube remains in place. Extensive extra thoracic soft tissue emphysema is seen. No visible infiltrate or pneumothorax. CXR 12/14/20: Right chest tube in place. Extensive subcu emphysema in the extra thoracic soft tissues. Lung howe unchanged. Chest xray Dec 11 IMPRESSION: Extensive diffuse bilateral subcutaneous extrathoracic emphysema consistent with pulmonary barotrauma. There appear to be 2 right-sided rib fractures, 9 in 10. Recommend chest CT. CT head ...Brain: The brain demonstrates generalized volume loss. No hemorrhage or edema seen. Cerebral ventricles: The ventricles are mildly enla rged in keeping with volume loss. ...IMPRESSION: No acute intracranial abnormality seen CT neck IMPRESSION: No cervical spine fracture seen. CT chestIMPRESSION: 1. Very large 70% pneumothorax on the right and this is a tension pneumothorax with shift of the mediastinal structures and heart to the left. Massive amount of pneumomediastinum and loculated air anterior to the cardiac silhouette. 2. Massive subcutaneous air throughout the chest and abdomen. 3. Fracture of the posterior aspect of the right 9th, 10th, 11th, and 12th ribs with offset fractures at several areas and probably the source of the pneumothorax. CT abd/pelvis IMPRESSION: 1. Severe distension of the stomach with secretions and an air-fluid level. 2. Numerous posterior rib fractures on the right with a moderate right pleural effusion probably serous fluid. 3. 70% tension pneumothorax on the right. 4. Subcutaneous air throughout the chest, abdomen , pelvis and scrotum. 5. Left inguinal hernia with a loop of colon extending into this left inguinal hernia. No obstruction at this time but this would be concern. 6. Enlargement of the prostate with a lobulation impressing on the floor of the urinary bladder. Cons iderations include hypertrophy and malignancy. MICROBIOLOGY: RESPIRATORY PANEL NEGATIVE by MULTIPLEXED NUCLEIC ACID PCR ASSESSMENT: is a 75 yr old M w a hx of NIDDM2 HTN DLP GERD OA Essential tremor who was admitted for management of hydropneumothorax after falling and sustaining multiple right sided rib fractures and had a chest tube placed; we were consulted to evaluate the patient bc possible alcohol w/d. PLAN: Right side hemopneumothorax 2/2 to intoxicated fall, 4 rib fractures -Todays CXR above -Chest tube in place on right chest, less drainage overnight to bedside cont ainer -Subcutaneous emphysema appears to be improving slowly -Plan per surgery: likely will remove today -H/H slightly lower today, no incr output from chest tue -Daily labs, close monitoring on tele, currently on RA Acute on chronic KAREN, Vitamin B12 anemia likely 2/2 to bleeding, hemopneumotho rax -Surgery management of hemopneumothorax -Low Vit B12 and iron -H/H slightly lower today at 8.2/24 -On ferrous sulfate BID, vitamin B12 supplement -Transfuse if Hgb <7 -Daily CBC Alcohol abuse -Currently no s/s of withdrawl, last does of ativan on 12/12/20 -CIWA protocol, thiamine, folate, MV, ativan PRN Mild Hyponatremia possibly 2/2 to beer potomania - improving slowly -Daily labs BPH -F/u w PCP for prostate cancer screening DVT px -SCD, teds Resolved issues: Encephalopathy likely multifactorial to alcohol intoxication, sleep deprivation VS, I&O, 24H, Fishbone Vital Signs/I&O Vital Signs Date Time Temp Pulse Resp B/P (MAP) Pulse Ox O2 Delivery O2 Flow Rate FiO2 12/15/20 12:31 99.0 64 18 160/75 (103) 98 Room Air 12/12/20 20:00 2.0 I&O- Last 24 Hours up to 6 AM 12/15/20 06:00 Intake Total 360 ml Output Total 934 ml Balance -574 ml Laboratory Data 24H LABS Laboratory Tests 2 12/14/20 16:40: Bedside Glucose (Misc Panel) 139H 12/14/20 19:55: Bedside Glucose (Misc Panel) 140H 12/15/20 05:51: Nucleated Red Blood Cells % (auto) 0.0, Anion Gap 6L, Glomerular Filtration Rate > 60.0, Calcium Level 8.6L 12/15/20 11:37: Bedside Glucose (Misc Panel) 194H CBC/BMP Laboratory Tests 12/15/20 05:51 Microbiology Microbiology 12/12/20 Blood Culture - Preliminary, Resulted No Growth after 48 hours. All Specime... 12/11/20 Respiratory Virus Panel (PCR) ([facility]) - Final, Complete Current Medications Current Medications Medications (Trade) Dose Ordered Sig/Marlyn Route PRN Reason Start Time Stop Time Status Last Admin Dose Admin Acetaminophen (Tylenol Arthritis Er) 1,300 mg Q8H PO 12/12/20 22:00 12/13/20 21:59 DC 12/13/20 12:18 Acetaminophen (Tylenol Tab) 650 mg Q4HP PRN PO MILD PAIN or TEMP > 101 12/11/20 19:45 12/14/20 22:22 Atenolol (Tenormin) 50 mg DAILY PO 12/12/20 13:00 12/15/20 08:14 Cyanocobalamin (Vitamin B12) 500 mcg DAILY PO 12/13/20 09:00 12/15/20 08:14 Dextrose (Dextrose 50%) 25 ml ASDIRECTED PRN IV SEE LABEL COMMENTS 12/13/20 23:45 Docusate Sodium (Colace) 100 mg BID PO 12/11/20 21:00 12/15/20 08:14 Ferrous Sulfate (Ferrous Sulfate) 325 mg BID PO 12/13/20 09:00 12/15/20 08:14 Folic Acid (Folic Acid) 1 mg DAILY PO 12/12/20 09:00 12/15/20 08:13 Glucagon (Glucagon) 1 mg ASDIRECTED PRN SC SEE LABEL COMMENTS 12/13/20 23:45 Glucose (Glucose) 16 GM ASDIRECTED PRN PO SEE LABEL COMMENTS 12/13/20 23:45 Home Med (Med Rec Complete!) ASDIRECTED XX 12/11/20 19:45 12/11/20 19:41 DC Insulin Human Lispro (HumaLOG INSULIN) SEE PROTOCOL TABLE AC MO 12/14/20 07:30 12/15/20 12:10 Insulin Human Lispro (HumaLOG INSULIN) SEE PROTOCOL TABLE Q6H MO 12/12/20 00:00 12/13/20 23:43 DC 12/13/20 05:19 Insulin Human Lispro (HumaLOG INSULIN) SEE PROTOCOL TABLE QHS SC 12/13/20 21:00 Ketorolac Tromethamine (ToRADol) 30 mg Q6HP PRN IV MODERATE PAIN (PS 5-7) 12/11/20 19:45 12/16/20 19:44 12/15/20 12:10 Lactated Ringer's 1,000 ml @ 125 mls/hr Q8H IV 12/11/20 19:41 12/12/20 17:05 DC 12/12/20 11:41 Lorazepam (Ativan) 2 mg ASDIRECTED PRN PO SEE PROTOCOL 12/12/20 12:45 12/12/20 19:37 DC 12/12/20 16:48 Lorazepam (Ativan) 2 mg ASDIRECTED PRN PO SEE PROTOCOL 12/12/20 20:00 12/15/20 08:13 Lorazepam (Ativan) 2 mg Q2HP PRN IV PER CIWA PROTOCOL 12/12/20 19:45 12/12/20 20:00 DC Lorazepam (Ativan) 2 mg STAT STAT IM 12/13/20 06:07 12/13/20 06:08 DC 12/13/20 06:13 Lorazepam (Ativan) 2 mg STAT STAT IV 12/13/20 06:05 12/13/20 06:08 DC Morphine Sulfate (Morphine Sulfate Inj) 2 mg Q2H PRN IV BREAKTHROUGH PAIN 12/11/20 19:45 Morphine Sulfate (Morphine Sulfate Inj) 2 mg Q30M PRN IV MODERATE PAIN (PS 5-7) 12/11/20 19:00 12/11/20 19:17 DC 12/11/20 19:17 Multivitamins (Theragram-M) 1 tab DAILY PO 12/12/20 09:00 12/15/20 08:15 Ondansetron HCl (ZOFRAN INJection) 4 mg Q6HP PRN IV NAUSEA OR VOMITING 12/11/20 19:45 Oxycodone HCl (Roxicodone, Oxyir) 5 mg Q4H PRN PO SEVERE PAIN (PS 8-10) 12/11/20 19:45 12/15/20 12:11 Pantoprazole Sodium (Protonix) 40 mg DAILY IV 12/12/20 09:00 12/15/20 08:13 Ramelteon (Rozerem) 8 mg QHS PO 12/12/20 21:00 12/14/20 20:46 Simvastatin (Zocor) 40 mg QHS PO 12/12/20 21:00 12/14/20 20:47 Sodium Chloride (Saline Lock Flush) 2 ml ASDIRECTED PRN IV SEE LABEL COMMENTS 12/13/20 08:00 Sodium Chloride (Saline Lock Flush) 2 ml SLF IV 12/13/20 14:00 12/15/20 05:05 Thiamine HCl (Thiamine HCl) 100 mg BID PO 12/12/20 13:00 12/14/20 21:01 DC 12/14/20 20:47 Allergies Coded Allergies: No Known Drug Allergies (Verified Allergy, Unknown, 12/11/20) Charlene Hernandez MD Dec 15, 2020 12:40
--- NOTE | 2020-12-15 20:08 | IPN ---
PROGRESS NOTE DATE: 12/14/2020 SUBJECTIVE: Patient overall seems to be making some slow but progressive improvement. His chest is still sore on the right hand side and he has had some serosangeneous drainage from this, but overall he is feeling better and he has been up moving around a little bit more. His white count has dropped down to 7.4. His hematocrit is stable at 26 this morning, although this has been bumping around in the 8 to 9 range. In any case, he has had some minimal drainage out of his chest tube and it was really only 10 cc yesterday and some minimal today. I hooked him back up to suction and really no air leak from this and even off suction, there is no evidence of air leak. I do see some movement of the fluid column and within the tube itself. Respiratory variations suggesting it is still not clogged off at this time. Reportedly his subcutaneous emphysema is also slowly regressing. PHYSICAL EXAMINATION: He has subcutaneous crepitus throughout his chest wall even on to his neck. His ecchymosis throughout his right chest wall is stable/improved reportedly. IMPRESSION/PLAN: Patient has rib fractures and a pneumothorax that seems to be resolved, however, the major question at this time is whether the patient has ongoing leak that is still exuding into the subcutaneous tissue or whether this is sealed at this time as well. I would like to keep the chest tube in one more day and then we will plan on removal tomorrow if he continues to have his improvement as we are seeing it now. JOHNNY
--- NOTE | 2020-12-15 21:07 | IPN ---
PROGRESS NOTE DATE: 12/15/2020 No air leak on his chest tube. He has been afebrile. His white count and hematocrit are stable. Overall medically stable at this time. He has been slowly increasing his activity and overall feeling better and decreasing pain. On his physical exam, he still has subcutaneous emphysema although it is much less than it was overall reportedly from the onset and he states that it is a little bit better today and obviously looks like he has less subcutaneous emphysema. His chest tube is not having any air leak and there is just minimal serosanguineous drainage in the tube itself. IMPRESSION/ PLAN: Patient has no evidence of air leak. Will remove the chest tube. Will have him increase his activity and will transfer him to the floor. If he is doing well, I anticipate he should be able to be discharged over the next 24-48 hours depending on his overall mobility and rehabilitation status.
[2020-12-15] MEDS: RAMELTEON 8 MG TAB (ROZEREM) PO SCH (22:06)
[2020-12-15] MEDS: SIMVASTATIN 40 MG TAB PO SCH (22:06)
[2020-12-15] MEDS ORDERED: CALCIUM CARBONATE 500 MG CHEW U/D PO PRN (22:45)
[2020-12-16] MEDS: oxyCODONE 5MG TAB PO PRN ×3 (03:41→20:17)
[2020-12-16] MEDS: SLF 3 ML SYR IV SCH (05:49)
[2020-12-16] MEDS: KETOROLAC 30 MG/ML 1ML VIAL IV PRN (05:49)
[2020-12-16 06:00] VITALS: BP 166/86
[2020-12-16] MEDS: TAMSULOSIN 0.4 MG CAP PO SCH (06:26)
[2020-12-16] MEDS: atenoloL 50 MG TAB PO SCH (06:26)
[2020-12-16 07:12] LABS: HEMATOCRIT 26.1 % (42.0-52.0); HEMOGLOBIN 8.9 g/dl (13.5-17.5); MEAN CORPUSCULAR HEMOGLOBIN 33.1 pg (27.0-33.0); MEAN CORPUSCULAR HGB CONC 34.1 g/dl (32.0-36.5); PLATELET COUNT, AUTOMATED 240 10^3/uL (150-450); RED BLOOD COUNT 2.69 10^6/uL (4.30-6.10); WHITE BLOOD COUNT 7.5 10^3/uL (4.0-10.0)
[2020-12-16 07:39] LABS: BLOOD UREA NITROGEN 6 MG/DL (7-18); CALCIUM LEVEL 8.4 MG/DL (8.8-10.2); CARBON DIOXIDE LEVEL 28 MEQ/L (21-32); CHLORIDE LEVEL 104 MEQ/L (98-107); GLOMERULAR FILTRATION RATE > 60.0 (>42); GLUCOSE, FASTING 145 MG/DL (70-100); POTASSIUM SERUM 4.3 MEQ/L (3.5-5.1); SODIUM LEVEL 139 MEQ/L (136-145)
[2020-12-16] MEDS ORDERED: IBUPROFEN 600MG TAB PO PRN (08:15)
--- NOTE | 2020-12-16 08:31 | REP ---
INDICATION: follow chest tube COMPARISON: 12/15/2020 TECHNIQUE: Portable AP view of the chest FINDINGS: Right-sided chest tube has been removed. Diffuse subcutaneous emphysema and underlying pleuroparenchymal changes including bibasilar atelectasis/airspace disease similar to prior examination. No new obvious acute process appreciated. Mediastinum and cardiac silhouette stable. Skeletal structures stable. Posterior right lower rib fractures again noted. IMPRESSION: Right chest tube removed. No significant change from prior examination. <Electronically signed by Isac Avalos > 12/16/20 0804
[2020-12-16] MEDS: metFORMIN (GLUCOPHAGE) 1000 MG TABLET PO SCH ×2 (09:51→17:02)
[2020-12-16] MEDS: FERROUS SULFATE 325MG TAB PO SCH ×2 (09:51→20:16)
[2020-12-16] MEDS: MULTIVITAMINS/MINERALS THERAP 1 TAB PO SCH (09:51)
[2020-12-16] MEDS: DOCUSATE SODIUM 100MG CAPSULE PO SCH ×2 (09:51→20:16)
[2020-12-16] MEDS: CYANOCOBALAMIN 500 MCG TAB PO SCH (09:51)
[2020-12-16] MEDS: FOLIC ACID 1 MG TAB PO SCH (09:52)
[2020-12-16 10:00] VITALS: BP 178/91
--- NOTE | 2020-12-16 10:01 | IPNPDOC ---
Text Note Date of Service The patient was seen on 12/16/20. NOTE General Surgery. Dr. Nixon Subjective The patient is S/P placement of chest tube for a right hemopneumothorax secondary to multiple rib fractures from a fall. The patient's chest tube was removed 12/15/20. The patient reports he is eating and drinking. He states he was out of bed yesterday. He has not yet worked much with physical therapy. The patient states pain has been controlled. He used to doses of oxycodone yesterday and 2 doses of Toradol. Objective The patient is awake and alert. Afebrile, heart rate 61, blood pressure 166/86. Saturation 97% on room air. He still has some subcutaneous emphysema noted anterior upper chest, this seems to be resolving. Chest tube incision bandage is removed as per Dr Nixon. No drainage. No erythema or tenderness, no signs of infection. The area was cleaned, 2 x 2 and Tegaderm applied. Large area of ecchymosis appears to be unchanged. Heart regular rate and rhythm. Chest with good air entry, still some subcutaneous air noted, some bibasilar crackles are noted. Abdomen is soft and nontender. No edema. Labs. WBC 7.5, hemoglobin 8.9 which appears to be stable in the eights. Platelets 240. Serum creatinine 0.70 with GFR greater than 60. Chest x-ray this morning indicating still diffuse subcutaneous edema and bibasilar atelectasis. No acute changes from prior exam 12/15/20. Assessment and plan. The patient is now status post removal of chest tube. He still has some subcutaneous emphysema but this does appear to be slowly improving. Chest tube incision site was redressed. Plan is to get him back on his metformin and discontinue IV medications in preparation for discharge. Discontinue Toradol, ibuprofen as needed. The patient still has oxycodone if needed. Tylenol if needed. Physical therapy to re assess today. Encouraged out of bed. I have encouraged use of incentive spirometer. Splinting with a pillow if needed for coughing or sneezing. Possibly consider discharge tomorrow pending activity with physical therapy. VS,Fishbone, I+O VS, Fishbone, I+O Laboratory Tests 12/16/20 06:40 Vital Signs Date Time Temp Pulse Resp B/P (MAP) Pulse Ox O2 Delivery O2 Flow Rate FiO2 12/16/20 06:26 61 166/86 12/16/20 06:00 98.4 20 97 12/16/20 04:11 Room Air 12/12/20 20:00 2.0 I&O- Last 24 Hours up to 6 AM 12/16/20 06:00 Intake Total 1480 ml Output Total 1325 ml Balance 155 ml Sena Quintero Dec 16, 2020 09:42
[2020-12-16 14:00] VITALS: BP 134/64
[2020-12-16] MEDS ORDERED: MORPHINE 2 MG/ML 1ML VIAL (J2270) IV ONE (16:45)
--- NOTE | 2020-12-16 19:09 | IPNPDOC ---
Date Seen The patient was seen on 12/16/20. Progress Note SUBJECTIVE: H/H stable. Chest tube removed on 12/15/20 and saturating well on RA. Some increased confusion overnight, given ativan. CIWA in place. Denies increased shortness of breath, n/v, fevers or chills. OBJECTIVE: PHYSICAL EXAMINATION: VITAL SIGNS: Please see below. GENERAL APPEARANCE: NAD, resting in bed, AAOx3 HEENT: decreased periorbital/facial swelling , facial crepitus has improved CARDIOVASCULAR: RRR/NMRG LUNGS: crepitus in bilateral chest, upper arms- improving . where chest tube incision site was, appears clean. right chest tender with palpation. Improved aeration b/l ABDOMEN: obese, BS + in 4 quadrant MUSCULOSKELETAL: ROM not tested NEUROLOGICAL: speech not dysarthric, weak 4/5 in all extremities but follows all commands. No CN deficits PSYCHIATRIC: mood and affect appropriate LABORATORY DATA: see below IMAGING: CXR 12/15/20: Right chest tube remains in place. Extensive extra thoracic soft tissue emphysema is seen. No visible infiltrate or pneumothorax. CXR 12/14/20: Right chest tube in place. Extensive subcu emphysema in the extra thoracic soft tissues. Lung howe unchanged. Chest xray Dec 11 IMPRESSION: Extensive diffuse bilateral subcutaneous extrathoracic emphysema consistent with pulmonary barotrauma. There appear to be 2 right-sided rib fractures, 9 in 10[address] chest CT[address] CT head ...Brain: The brain demonstrates generalized volume loss. No hemorrhage or edema seen. Cerebral ventricles: The ventricles are mildly enlarged in keeping with volume loss. ...IMPRESSION: No acute intracranial abnormality seen CT neck IMPRESSION: No cervical spine fracture seen. CT chestIMPRESSION: 1. Very large 70% pneumothorax on the right and this is a tension pneumothorax with shift of the mediastinal structures and heart to the left. Massive amount of pneumomediastinum and loculated air anterior to the car diac silhouette. 2. Massive subcutaneous air throughout the chest and abdomen. 3. Fracture of the posterior aspect of the right 9th, 10th, 11th, and 12th ribs with offset fractures at several areas and probably the source of the pneumothorax. CT abd/pelvis IMPRESSION: 1. Severe distension of the stomach with secretions and an air-fluid level. 2. Numerous posterior rib fractures on the right with a moderate right pleural effusion probably serous fluid. 3. 70% tension pneumothorax on the right. 4. Subcutaneous air throughout the chest, abdomen , pelvis and scrotum. 5. Left inguinal hernia with a loop of colon extending into this left inguinal hernia. No obstruction at this time but this would be concern. 6. Enlargement of the prostate with a lobulation impressing on the floor of the urinary bladder. Considerations include hypertrophy and malignancy. MICROBIOLOGY: RESPIRATORY PANEL NEGATIVE by MULTIPLEXED NUCLEIC ACID PCR ASSESSMENT: is a 75 yr old M w a hx of NIDDM2 HTN DLP GERD OA Essential tremor who was admitted for management of hydropneumothorax after falling and sustaining multiple right sided rib fractures and had a chest tube placed; we were consulted to evaluate the patient bc possible alcohol w/d. PLAN: Right side hemopneumothorax 2/2 to intoxicated fall, 4 rib fractures -Chest tube removed on 12/15/20, saturating well on RA -Subcutaneous emphysema continues to improve -Plan per surgery: possible d/c in next 1-2 days -H/H stable -Daily labs Acute on chronic KAREN, Vitamin B12 anemia likely 2/2 to bleeding, hemopneumothorax -Chest tube, no more bleeding -H/H stable -On ferrous sulfate BID, vitamin B12 supplement -Transfuse if Hgb <7 -Daily CBC Alcohol abuse -Confusion overnight but awake and alert for me on exam today -Currently no s/s of withdrawl -CIWA protocol, thiamine, folate, MV, ativan PRN Mild Hyponatremia possibly 2/2 to beer potomania - improving slowly -Daily labs BPH -F/u w PCP for prostate cancer screening DVT px -SCD, teds Resolved issues: Encephalopathy likely multifactorial to alcohol intoxication, sleep deprivation VS, I&O, 24H, [facility] Vital Signs/I&O Vital Signs Date Time Temp Pulse Resp B/P (MAP) Pulse Ox O2 Delivery O2 Flow Rate FiO2 12/16/20 17:12 20 12/16/20 14:00 97.8 64 134/64 (87) 94 Room Air 12/12/20 20:00 2.0 I&O- Last 24 Hours up to 6 AM 12/16/20 05:59 Intake Total 1380 ml Output Total 1531 ml Balance -151 ml Laboratory Data 24H LABS Laboratory Tests 2 12/15/20 20:53: Bedside Glucose (Misc Panel) 140H 12/16/20 06:40: Nucleated Red Blood Cells % (auto) 0.0, Anion Gap 7L, Glomerular Filtration Rate > 60.0, Calcium Level 8.4L 12/16/20 11:52: Bedside Glucose (Misc Panel) 153H 12/16/20 17:06: Bedside Glucose (Misc Panel) 117H CBC/BMP Laboratory Tests 12/16/20 06:40 Microbiology Microbiology 12/12/20 Blood Culture - Preliminary, Resulted No Growth after 72 hours. All specime... 12/11/20 Respiratory Virus Panel (PCR) ([facility]) - Final, Complete Current Medications Current Medications Medications (Trade) Dose Ordered Sig/Marlyn Route PRN Reason Start Time Stop Time Status Last Admin Dose Admin Acetaminophen (Tylenol Arthritis Er) 1,300 mg Q8H PO 12/12/20 22:00 12/13/20 21:59 DC 12/13/20 12:18 Acetaminophen (Tylenol Tab) 650 mg Q4HP PRN PO MILD PAIN or TEMP > 101 12/11/20 19:45 12/14/20 22:22 Atenolol (Tenormin) 50 mg DAILY PO 12/12/20 13:00 12/16/20 06:26 Calcium Carbonate (Tums) 500 mg QHSP PRN PO INDIGESTION 12/15/20 22:45 12/15/20 22:59 Cyanocobalamin (Vitamin B12) 500 mcg DAILY PO 12/13/20 09:00 12/16/20 08:57 DC 12/15/20 08:14 Cyanocobalamin (Vitamin B12) 500 mcg DAILY PO 12/16/20 09:00 12/16/20 09:51 Dextrose (Dextrose 50%) 25 ml ASDIRECTED PRN IV SEE LABEL COMMENTS 12/13/20 23:45 12/16/20 08:16 DC Docusate Sodium (Colace) 100 mg BID PO 12/11/20 21:00 12/16/20 09:51 Ferrous Sulfate (Ferrous Sulfate) 325 mg BID PO 12/13/20 09:00 12/16/20 09:51 Folic Acid (Folic Acid) 1 mg DAILY PO 12/12/20 09:00 12/16/20 09:52 Glucagon (Glucagon) 1 mg ASDIRECTED PRN SC SEE LABEL COMMENTS 12/13/20 23:45 12/16/20 08:16 DC Glucose (Glucose) 16 GM ASDIRECTED PRN PO SEE LABEL COMMENTS 12/13/20 23:45 12/16/20 08:16 DC Home Med (Med Rec Complete!) ASDIRECTED XX 12/11/20 19:45 12/11/20 19:41 DC Ibuprofen (Advil) 600 mg Q6HP PRN PO MODERATE PAIN (PS 5-7) 12/16/20 08:15 Insulin Human Lispro (HumaLOG INSULIN) SEE PROTOCOL TABLE AC SC 12/14/20 07:30 12/16/20 08:16 DC 12/15/20 17:14 Insulin Human Lispro (HumaLOG INSULIN) SEE PROTOCOL TABLE Q6H SC 12/12/20 00:00 12/13/20 23:43 DC 12/13/20 05:19 Insulin Human Lispro (HumaLOG INSULIN) SEE PROTOCOL TABLE QHS ME 12/13/20 21:00 12/16/20 08:16 DC Ketorolac Tromethamine (ToRADol) 30 mg Q6HP PRN IV MODERATE PAIN (PS 5-7) 12/11/20 19:45 12/16/20 08:16 DC 12/16/20 05:49 Lactated Ringer's 1,000 ml @ 125 mls/hr Q8H IV 12/11/20 19:41 12/12/20 17:05 DC 12/12/20 11:41 Lorazepam (Ativan) 2 mg ASDIRECTED PRN PO SEE PROTOCOL 12/12/20 12:45 12/12/20 19:37 DC 12/12/20 16:48 Lorazepam (Ativan) 2 mg ASDIRECTED PRN PO SEE PROTOCOL 12/12/20 20:00 12/15/20 13:47 Lorazepam (Ativan) 2 mg Q2HP PRN IV PER CIWA PROTOCOL 12/12/20 19:45 12/12/20 20:00 DC Lorazepam (Ativan) 2 mg STAT STAT IM 12/13/20 06:07 12/13/20 06:08 DC 12/13/20 06:13 Lorazepam (Ativan) 2 mg STAT STAT IV 12/13/20 06:05 12/13/20 06:08 DC Metformin HCl (Glucophage) 1,000 mg BID@08,18 PO 12/16/20 08:30 12/16/20 17:02 Morphine Sulfate (Morphine Sulfate Inj) 2 mg Q2H PRN IV BREAKTHROUGH PAIN 12/11/20 19:45 12/16/20 08:16 DC Morphine Sulfate (Morphine Sulfate Inj) 2 mg Q30M PRN IV MODERATE PAIN (PS 5-7) 12/11/20 19:00 12/11/20 19:17 DC 12/11/20 19:17 Multivitamins (Theragram-M) 1 tab DAILY PO 12/12/20 09:00 12/16/20 09:51 Ondansetron HCl (ZOFRAN INJection) 4 mg Q6HP PRN IV NAUSEA OR VOMITING 12/11/20 19:45 Oxycodone HCl (Roxicodone, Oxyir) 5 mg Q4H PRN PO SEVERE PAIN (PS 8-10) 12/11/20 19:45 12/16/20 15:54 Pantoprazole Sodium (Protonix) 40 mg DAILY IV 12/12/20 09:00 12/16/20 08:16 DC 12/15/20 08:13 Ramelteon (Rozerem) 8 mg QHS PO 12/12/20 21:00 12/15/20 22:06 Simvastatin (Zocor) 40 mg QHS PO 12/12/20 21:00 12/15/20 22:06 Sodium Chloride (Saline Lock Flush) 2 ml ASDIRECTED PRN IV SEE LABEL COMMENTS 12/13/20 08:00 Cancel Sodium Chloride (Saline Lock Flush) 2 ml SLF IV 12/13/20 14:00 12/16/20 08:57 DC 12/16/20 05:49 Tamsulosin HCl (Flomax) 0.4 mg DAILY PO 12/16/20 06:17 12/16/20 06:26 Thiamine HCl (Thiamine HCl) 100 mg BID PO 12/12/20 13:00 12/14/20 21:01 DC 12/14/20 20:47 Allergies Coded Allergies: No Known Drug Allergies (Verified Allergy, Unknown, 12/11/20) Charlene Hernandez MD Dec 16, 2020 19:09
[2020-12-16] MEDS: RAMELTEON 8 MG TAB (ROZEREM) PO SCH (20:16)
[2020-12-16] MEDS: SIMVASTATIN 40 MG TAB PO SCH (20:16)
[2020-12-16 20:19] VITALS: BP 158/95
[2020-12-16 22:00] VITALS: BP 133/84
[2020-12-17] MEDS: oxyCODONE 5MG TAB PO PRN ×5 (00:36→21:49)
[2020-12-17 05:30] VITALS: BP 131/60
[2020-12-17 06:00] VITALS: BP 133/64
[2020-12-17 06:20] LABS: HEMATOCRIT 26.9 % (42.0-52.0); HEMOGLOBIN 8.9 g/dl (13.5-17.5); MEAN CORPUSCULAR HEMOGLOBIN 32.7 pg (27.0-33.0); MEAN CORPUSCULAR HGB CONC 33.1 g/dl (32.0-36.5); MEAN CORPUSCULAR VOLUME 98.9 fl (80.0-96.0); PLATELET COUNT, AUTOMATED 264 10^3/uL (150-450); RED BLOOD COUNT 2.72 10^6/uL (4.30-6.10); WHITE BLOOD COUNT 6.6 10^3/uL (4.0-10.0)
[2020-12-17 06:45] LABS: ALBUMIN 2.8 GM/DL (3.2-5.2); ALT/SGPT 17 U/L (12-78); BILIRUBIN,TOTAL 1.1 MG/DL (0.2-1.0); BLOOD UREA NITROGEN 8 MG/DL (7-18); CALCIUM LEVEL 8.7 MG/DL (8.8-10.2); CARBON DIOXIDE LEVEL 28 MEQ/L (21-32); CHLORIDE LEVEL 101 MEQ/L (98-107); CREATININE FOR GFR 0.67 MG/DL (0.70-1.30); GLOMERULAR FILTRATION RATE > 60.0 (>42); GLUCOSE, FASTING 132 MG/DL (70-100); POTASSIUM SERUM 4.3 MEQ/L (3.5-5.1); SODIUM LEVEL 136 MEQ/L (136-145)
[2020-12-17] MEDS: DOCUSATE SODIUM 100MG CAPSULE PO SCH ×2 (08:40→21:23)
[2020-12-17] MEDS: MIRALAX *UNIT DOSE* 17GM PACKET PO SCH ×2 (08:40→21:23)
[2020-12-17] MEDS: SENNA 8.6 MG TAB (SENOKOT) PO SCH ×2 (08:40→21:23)
[2020-12-17] MEDS: FOLIC ACID 1 MG TAB PO SCH (08:40)
[2020-12-17] MEDS: TAMSULOSIN 0.4 MG CAP PO SCH (08:40)
[2020-12-17] MEDS: CYANOCOBALAMIN 500 MCG TAB PO SCH (08:40)
[2020-12-17] MEDS: MULTIVITAMINS/MINERALS THERAP 1 TAB PO SCH (08:40)
[2020-12-17] MEDS: FERROUS SULFATE 325MG TAB PO SCH ×2 (08:40→21:23)
[2020-12-17] MEDS: metFORMIN (GLUCOPHAGE) 1000 MG TABLET PO SCH ×2 (08:40→17:41)
[2020-12-17] MEDS: atenoloL 50 MG TAB PO SCH (08:41)
--- NOTE | 2020-12-17 08:53 | IPNPDOC ---
Text Note Date of Service The patient was seen on 12/17/20. NOTE General Surgery. Dr. Nixon Subjective The patient is S/P placement of chest tube for a right hemopneumothorax secondary to multiple rib fractures from a fall. The patient's chest tube was removed 12/15/20. The patient is out of bed this morning to the chair and eating breakfast. The patient states pain has been controlled. He used 3 doses of oxycodone yesterday and 1 dose of ibuprofen. Nursing states he has been doing well, physical therapy recommended additional strengthening. Objective The patient is awake and alert. Afebrile, heart rate 78, blood pressure 133/64. Saturation 96% on room air. He still has some subcutaneous emphysema noted anterior upper chest, this has been resolving and is slightly decreased again from yesterday. Chest tube incision bandage is intact. Large area of ecchymosis lower right chest and flank area appears to be unchanged. Heart regular rate and rhythm. Chest with good air entry, still some subcutaneous air noted, some bibasilar crackles are noted. Abdomen is soft and nontender. No edema. Labs. WBC 6.6, hemoglobin 8.9 which is stable compared with 12/16. Platelets 264. Serum creatinine 0.67 with GFR greater than 60. Assessment and plan. The patient is now S/P removal of chest tube 12/15/20. Subcutaneous emphysema continues to subside. Chest tube incision site with dressing intact. Continue with oxycodone as needed, Tylenol as needed, ibuprofen as needed. Continue to encourage out of bed, incentive spirometer, splinting with a pillow if needed for coughing or sneezing. The patient did work with physical therapy 12/16 and is not yet ready for discharge. Possibly consider discharge 12/18/20 pending physical therapy recommendations. VS,Fishbone, I+O VS, Fishbone, I+O Laboratory Tests 12/17/20 05:30 Vital Signs Date Time Temp Pulse Resp B/P (MAP) Pulse Ox O2 Delivery O2 Flow Rate FiO2 12/17/20 08:41 78 148/72 12/17/20 06:00 98.6 20 96 12/17/20 05:59 Room Air 12/12/20 20:00 2.0 I&O- Last 24 Hours up to 6 AM 12/17/20 05:59 Intake Total 820 ml Output Total 375 ml Balance 445 ml Attending Note Attending Note I concur with above note. Patient likely ready for DC in next 1-2 days. Seems more alert today. Advised that his ribs will hurt for 4-6 weeks. Will await PT clearance. Sena Quintero Dec 17, 2020 08:53 Walker Nixon Dec 18, 2020 17:28
[2020-12-17 09:00] VITALS: BP 148/72
[2020-12-17 14:00] VITALS: BP 139/72
--- NOTE | 2020-12-17 14:23 | IPNPDOC ---
Text Note Date of Service The patient was seen on 12/17/20. NOTE SUBJECTIVE: Patient seen and examined at bedside. No acute overnight events reported. No new medical complaints this morning. Still scoring >8 on CIWA as reported. OBJECTIVE: VITAL SIGNS: Please see below. GENERAL APPEARANCE: NAD, sitting comfortably in chair HEENT: decreased periorbital/facial swelling , facial crepitus has improved CARDIOVASCULAR: RRR/NMRG LUNGS: crepitus in bilateral chest, upper arms- improving . where chest tube incision site was, appears clean. right chest tender with palpation. Improved aeration b/l ABDOMEN: soft, NT, +BS Ext: no edema A/P: 75M with PMHx NIDDM2 HTN DLP GERD OA Essential tremor who was admitted for management of hydropneumothorax after falling and sustaining multiple right sided rib fractures and had a chest tube placed hospitalist consulted for possible alcohol w/d. #Right side hemopneumothorax 2/2 to intoxicated fall, 4 rib fractures -Chest tube removed on 12/15/20, saturating well on RA -Subcutaneous emphysema continues to improve -follow as per surgery #Acute on chronic KAREN, Vitamin B12 anemia likely 2/2 to bleeding, hemopneumothorax -Chest tube, no more bleeding -H/H stable -On ferrous sulfate BID, vitamin B12 supplement -Transfuse if Hgb <7 #Alcohol abuse - reported to be still scoring with CIWA >8 -Confusion overnight but awake and alert for me on exam today -Currently no s/s of withdrawl -CIWA protocol, thiamine, folate, MV, ativan PRN #Mild Hyponatremia possibly 2/2 to beer potomania - resolved #BPH -F/u w PCP for prostate cancer screening #DVT px -SCD, teds Resolved issues: Encephalopathy likely multifactorial to alcohol intoxication, sleep deprivation Dispo: pending clearance by PT/OT VS,Georgette, I+O VS, Georgette, I+O Laboratory Tests 12/17/20 05:30 Vital Signs Date Time Temp Pulse Resp B/P (MAP) Pulse Ox O2 Delivery O2 Flow Rate FiO2 12/17/20 10:10 18 Room Air 12/17/20 09:00 78 148/72 12/17/20 06:00 98.6 96 12/12/20 20:00 2.0 I&O- Last 24 Hours up to 6 AM 12/17/20 06:00 Intake Total 780 ml Output Total 525 ml Balance 255 ml MARY RICHARDSON MD Dec 17, 2020 14:23
[2020-12-17] MEDS: SIMVASTATIN 40 MG TAB PO SCH (21:23)
[2020-12-17] MEDS: RAMELTEON 8 MG TAB (ROZEREM) PO SCH (21:23)
[2020-12-17 22:00] VITALS: BP 151/74
[2020-12-18 06:00] VITALS: BP 157/73
[2020-12-18] MEDS: MIRALAX *UNIT DOSE* 17GM PACKET PO SCH (07:48)
[2020-12-18] MEDS: metFORMIN (GLUCOPHAGE) 1000 MG TABLET PO SCH (07:49)
[2020-12-18] MEDS: SENNA 8.6 MG TAB (SENOKOT) PO SCH (07:49)
[2020-12-18] MEDS: DOCUSATE SODIUM 100MG CAPSULE PO SCH (07:49)
[2020-12-18] MEDS: CYANOCOBALAMIN 500 MCG TAB PO SCH (07:49)
[2020-12-18] MEDS: FOLIC ACID 1 MG TAB PO SCH (07:49)
[2020-12-18] MEDS: TAMSULOSIN 0.4 MG CAP PO SCH (07:49)
[2020-12-18] MEDS: FERROUS SULFATE 325MG TAB PO SCH (07:49)
[2020-12-18] MEDS: MULTIVITAMINS/MINERALS THERAP 1 TAB PO SCH (07:49)
[2020-12-18 07:50] VITALS: BP 157/73
[2020-12-18] MEDS: atenoloL 50 MG TAB PO SCH (07:50)
[2020-12-18] MEDS: oxyCODONE 5MG TAB PO PRN (07:51)
[2020-12-18] MEDS ORDERED: PEG1POW PO ×2 (09:40→10:16)
[2020-12-18] MEDS ORDERED: DOK1CAP7 PO ×2 (09:40→10:16)
[2020-12-18] MEDS ORDERED: SENN18TA PO ×2 (09:40→10:16)
[2020-12-18] MEDS ORDERED: OXYC1TAB23 PO ×2 (09:40→10:16)
[2020-12-18] MEDS ORDERED: FLOM0.4C39 PO (11:06)
[2020-12-18] MEDS ORDERED: VITA500T40 PO (11:06)
[2020-12-18] MEDS ORDERED: FERR325T18 PO (11:06)
--- NOTE | 2020-12-18 11:23 | DS.PDOC ---
Discharge Summary General Date of Admission Dec 11, 2020 at 19:41 Date of Discharge 12/18/2020 Primary Care Physician: CHARLINE MORGAN PA-C Attending Physician: Walker Nixon Specialist/Consultants Involve: JARRELL DIALLO MD Discharge Summary PROCEDURES PERFORMED DURING STAY: Right tube thoracostomy 12/11/[address] Nixon ADMITTING DIAGNOSES: Right hemopneumothorax secondary to multiple right rib fractures status post fall Multiple right rib fractures Extensive subcutaneous and soft tissue emphysema Alcohol intoxication Acute on chronic iron deficiency anemia/vitamin B12 deficiency BPH Hypertension Diabetes mellitus type 2 Hyperlipidemia GERD DISCHARGE DIAGNOSES: Right hemopneumothorax secondary to multiple right rib fractures, status post right tube thoracostomy 12/11/20, removal of chest tube 12/15/20. Multiple right rib fractures Extensive subcutaneous and soft tissue emphysema Alcohol intoxication Hypertension Diabetes mellitus type 2 Hyperlipidemia GERD CHIEF COMPLAINT: Rib Fractures, Hemopneumothorax. HISTORY OF PRESENT ILLNESS: The patient is a 75-year-old male who was brought to [facility] emergency department on 12/11/20 after reporting he had fallen at home. EMS reported he was walking across his living room and fell landing on his right side. He was complaining of significant pain in the right back and during EMS transport it was noted that he was developing increasing swelling of the face and chest with evidence of subcutaneous emphysema. Upon arrival to the emergency department he was noted to have marked emphysema of the soft tissues of the abdomen, chest, neck and face. His eyes were swollen shut, respirations were easy however he was complaining of pain in the back. Imaging in the emergency department indicated right pneumothorax with layering of blood in the right chest, for right rib fractures posteriorly, extensive air was noted tracking to the soft tissues of the chest. No evidence of pneumothorax on the left. Subsequently chest tube was placed and admission was arranged. HOSPITAL COURSE: After chest tube placement in the emergency department there was reexpansion of the right lung and evacuation of approximately 600 mL of blood. The patient was initially admitted to progressive care unit for close monitoring of his respiratory status and chest tube. Hospitalist service was also consulted to assist with medical management and possible alcohol withdrawal as the patient's alcohol level on admission was noted to be 0.144, he was managed with CIWA protocol, thiamine/folate/multivitamin supplements during his admission. The patient was also noted to have mild hyponatremia also felt possibly related to his alcohol intake and subsequently resolved. He was also noted to have acute on chronic iron deficiency anemia with vitamin B12 deficiency anemia. He was started on iron supplement twice a day and vitamin B12 supplement during his admission. No transfusion was required during his admission and his hemoglobin remained stable in the 8s. The patient was also started on Flomax for BPH with plan for outpatient follow-up with his PCP for prostate screening. He subsequently continued to improve and his chest tube was removed 12/15/20. Subcutaneous emphysema continued to decrease. By 12/16/20 the patient was feeling better and getting up to the chair. Physical therapy was requested to assist with discharge planning. By 12/17/20 the patient was felt safe for discharge with recommendation for outpatient physical therapy. Initially we were going to try to set this up with home services however the patient declines home services stating his dog does not like visitors. An order for outpatient physical therapy was provided. Rolling walker was also recommended and an order was given. The patient is reviewed and examined by Dr. Nixon on the morning of discharge. The patient states he is anxious for discharge. He states he feels his pain is controlled, respiratory status is stable. The patient had been resumed on regular diet 12/13/20 and it has been noted that the patient has not had a bowel movement during his stay, his bowel regimen was increased 12/17/20. We have continued this and cautioned the patient to ensure he is taking his bowel regimen if he is using Percocet at home. DISCHARGE MEDICATIONS: Please see below. ALLERGIES: Please see below. PHYSICAL EXAMINATION ON DISCHARGE: VITAL SIGNS: Please see below. GENERAL: Sitting up in bed comfortably. HEENT: MMM CARDIOVASCULAR EXAMINATION: S1-S2 regular rate and rhythm RESPIRATORY EXAMINATION: The patient still has some subcutaneous emphysema noted anterior upper chest. Chest tube insertion site right chest with occlusive dressing intact. Large area of ecchymosis right chest and flank area appears unchanged. Good air entry is noted with still some subcutaneous air noted and a few bibasilar crackles. ABDOMINAL EXAMINATION: Soft and nontender, ND, BS present. EXTREMITIES: No edema NEUROLOGICAL EXAMINATION: Alert and oriented 3, IVANA x 4. PSYCHIATRIC EXAMINATION: Pleasant and cooperative LABORATORY DATA: Please see below. IMAGING: Chest x-ray 12/16/[address] removed indicating still diffuse subcutaneous edema and bibasilar atelectasis. No acute changes from prior exam 12/15/20. ACTIVITY: As tolerated. DIET: Regular DISPOSITION: Discharged to home. DISCHARGE INSTRUCTIONS: 1. Discharge home 12/18/20 2. The patient is advised he can use Tylenol 650 mg every 4 hours as needed, ibuprofen 600 mg every 8 hours as needed. I have provided the patient with Percocet 5/325 4 times a day as needed. The patient is aware to use this for severe pain. I have advised him not to exceed MDD of acetaminophen. I have also reinforced the importance of continuing bowel care if the patient is using pain medications. 3. Discussed he can continue with splinting for movement or coughing. 4. Continue incentive spirometer. 5. Physical therapy evaluation recommends outpatient physical therapy, order given. Also recommendation for rolling walker, order given. 6. Arrange follow-up appointment with PCP in 5-7 days for follow-up of anemia and BPH. 7. Arrange follow-up with Dr. Nixon in 2 weeks 8. The patient can remove occlusive dressing over chest tube site in 2 days and apply dry dressing daily. DISCHARGE CONDITION: Stable. TIME SPENT ON DISCHARGE: Greater than 30 minutes. Vital Signs/I&Os Vital Signs Date Time Temp Pulse Resp B/P (MAP) Pulse Ox O2 Delivery O2 Flow Rate FiO2 12/18/20 08:21 18 12/18/20 07:50 73 157/73 12/18/20 06:00 97.6 93 12/17/20 22:19 Room Air 12/12/20 20:00 2.0 I&O- Last 24 Hours up to 6 AM 12/18/20 06:00 Intake Total 630 ml Output Total 1325 ml Balance -695 ml Laboratory Data Labs 24H Item Value Date Time White Blood Count 6.6 10^3/uL 12/17/20 0530 Red Blood Count 2.72 10^6/uL L 12/17/20 0530 Hemoglobin 8.9 g/dl L 12/17/20 0530 Hematocrit 26.9 % L 12/17/20 0530 Mean Corpuscular Volume 98.9 fl H 12/17/20 0530 Mean Corpuscular Hemoglobin 32.7 pg 12/17/20 0530 Mean Corpuscular Hemoglobin Concent 33.1 g/dl 12/17/20 0530 Platelet Count 264 10^3/uL 12/17/20 0530 Sodium Level 136 MEQ/L 12/17/20 0530 Potassium Level 4.3 MEQ/L 12/17/20 0530 Chloride Level 101 MEQ/L 12/17/20 0530 Carbon Dioxide Level 28 MEQ/L 12/17/20 0530 Anion Gap 7 MEQ/L L 12/17/20 0530 Blood Urea Nitrogen 8 MG/DL 12/17/20 0530 Creatinine 0.67 MG/DL L 12/17/20 0530 Glomerular Filtration Rate > 60.0 12/17/20 0530 Fasting Glucose 132 MG/DL H 12/17/20 0530 Calcium Level 8.7 MG/DL L 12/17/20 0530 Aspartate Amino Transf (AST/SGOT) 12 U/L 12/17/20 0530 Alanine Aminotransferase (ALT/SGPT) 17 U/L 12/17/20 0530 Microbiology Microbiology 12/12/20 Blood Culture - Final, Complete NO GROWTH AFTER 5 DAYS 12/11/20 Respiratory Virus Panel (PCR) ([facility]) - Final, Complete Discharge Medications Scheduled Atenolol (Atenolol) 50 Mg Tablet, 50 MG PO DAILY, (Reported) Cyanocobalamin (Vitamin B-12) (Vitamin B-12) 500 Mcg Tablet, 500 MCG PO DAILY Docusate Sodium (Dok) 100 Mg Capsule, 100 MG PO BID Ferrous Sulfate (Ferrous Sulfate) 325 Mg Tablet, 325 MG PO BID Metformin HCl (Metformin HCl) 1,000 Mg Tablet, 1,000 MG PO BID, (Reported) Polyethylene Glycol 3350 (Polyethylene Glycol 3350) 17 Gm Powd.pack, 1 PKT PO BID Senna (Senna Lax) 8.6 Mg Tablet, 1 TAB PO BID Simvastatin (Simvastatin) 40 Mg Tablet, 40 MG PO DAILY, (Reported) Tamsulosin HCl (Flomax) 0.4 Mg Capsule, 0.4 MG PO DAILY Scheduled PRN Oxycodone HCl/Acetaminophen (Oxycodone-Acetaminophen 5-325) 1 Each Tablet, 1 TAB PO QIDP PRN for pain Allergies Coded Allergies: No Known Drug Allergies (Verified Allergy, Unknown, 12/11/20) Attending Note Attending Note Agree with report of PAUL Quintero. Patient more alert and animated today. Eager to go home. Note should read that there are 4 broken ribs on right. I advised him that he will be sore for a month or more but must do his breathing exercises to avoid pneumonia. Sena Quintero Dec 18, 2020 11:23 Walker Nixon Dec 20, 2020 09:12
== END 2020-12-18 14:05 | disposition home or self-care (01) | DRG 200 ==
LOC: M ED 18:05 → M ED INP 19:41 → M PCU 12-12 02:25 → M MSPAV 12-15 14:25
PROVIDERS: ADMIT Surgery; ATTEND Surgery
PROC: 0W9900Z Drainage of Right Pleural Cavity with Drainage Device, Open Approach (ICD-10-PCS; principal; 2020-12-11)
DX: S27.2XXA Traumatic hemopneumothorax, initial encounter (principal); S22.41XA Multiple fractures of ribs, right side, initial encounter for closed fracture; E87.1 Hypo-osmolality and hyponatremia; F10.139 Alcohol abuse with withdrawal, unspecified; G93.40 Encephalopathy, unspecified; J98.11 Atelectasis; W18.30XA Fall on same level, unspecified, initial encounter; Y92.018 Other place in single-family (private) house as the place of occurrence of the external cause; T79.7XXA Traumatic subcutaneous emphysema, initial encounter; E11.9 Type 2 diabetes mellitus without complications; I10 Essential (primary) hypertension; E78.5 Hyperlipidemia, unspecified; K21.9 Gastro-esophageal reflux disease without esophagitis; M19.90 Unspecified osteoarthritis, unspecified site; D51.3 Other dietary vitamin B12 deficiency anemia; N40.0 Benign prostatic hyperplasia without lower urinary tract symptoms; F10.97 Alcohol use, unspecified with alcohol-induced persisting dementia; D50.0 Iron deficiency anemia secondary to blood loss (chronic); G25.0 Essential tremor; F10.129 Alcohol abuse with intoxication, unspecified; Z79.84 Long term (current) use of oral hypoglycemic drugs; Z79.899 Other long term (current) drug therapy; Z98.41 Cataract extraction status, right eye; Z98.42 Cataract extraction status, left eye; Z87.891 Personal history of nicotine dependence; Z72.820 Sleep deprivation

== ENCOUNTER → 2021-01-07 | Outpatient (REF) | payer MEDICARE, OTHER ==
[~2021-01-07] MED LIST: ATEN50TA2 PO; DOK1CAP7 PO; FERR325T18 PO; FLOM0.4C39 PO; MED REC COMMENT; METF10004 PO; OXYC1TAB23 PO; POLY17PO18 PO; SENN18TA PO; SIMV40TA20 PO; VITA500T40 PO
== END ==
LOC: M SFHCADAM 12:16
PROVIDERS: ATTEND Physician Assistant
DX: N40.0 Benign prostatic hyperplasia without lower urinary tract symptoms (principal)
CPT/HCPCS: 96372; G0103; G0463; J3420

== ENCOUNTER → 2021-01-30 | Outpatient (REF) | payer MEDICARE, OTHER ==
[2021-01-30 12:46] LABS: HEMATOCRIT 40.7 % (42.0-52.0); HEMOGLOBIN 13.6 g/dl (13.5-17.5); MEAN CORPUSCULAR HEMOGLOBIN 32.6 pg (27.0-33.0); MEAN CORPUSCULAR HGB CONC 33.4 g/dl (32.0-36.5); MEAN CORPUSCULAR VOLUME 97.6 fl (80.0-96.0); PLATELET COUNT, AUTOMATED 310 10^3/uL (150-450); RED BLOOD COUNT 4.17 10^6/uL (4.30-6.10); WHITE BLOOD COUNT 7.5 10^3/uL (4.0-10.0)
[2021-01-30 13:19] LABS: ALBUMIN 3.8 GM/DL (3.2-5.2); ALT/SGPT 37 U/L (12-78); BILIRUBIN,TOTAL 0.3 MG/DL (0.2-1.0); BLOOD UREA NITROGEN 18 MG/DL (7-18); CALCIUM LEVEL 9.6 MG/DL (8.8-10.2); CARBON DIOXIDE LEVEL 30 MEQ/L (21-32); CHLORIDE LEVEL 103 MEQ/L (98-107); CHOLESTEROL LEVEL 197 MG/DL (<200); FERRITIN 76 NG/ML (26-388); FREE T4 0.95 NG/DL (0.76-1.46); GLOMERULAR FILTRATION RATE > 60.0 (>42); GLUCOSE, FASTING 162 MG/DL (70-100); HDL CHOLESTEROL 50 MG/DL (>40); IRON (FE) 91 UG/DL (65-175); LDL CHOLESTEROL 125 MG/DL (<100); NON-HDL-C 147 MG/DL; PERCENT SATURATION 29.4 % (19.7-50.0); POTASSIUM SERUM 4.8 MEQ/L (3.5-5.1); SODIUM LEVEL 137 MEQ/L (136-145); THYROID STIMULATING HORMONE 0.722 uIU/ML (0.358-3.740); TOTAL IRON BINDING CAPACITY 310 UG/DL (250-450); TOTAL PROTEIN 6.5 GM/DL (6.4-8.2); TRIGLYCERIDES LEVEL 108 MG/DL (<150)
[2021-01-30 13:23] LABS: TOTAL 25(OH) VITAMIN D 34.2 NG/ML (30.0-100.0)
== END ==
LOC: M SFHCADAM 08:51
PROVIDERS: ATTEND Physician Assistant
DX: D62 Acute posthemorrhagic anemia (principal); E11.40 Type 2 diabetes mellitus with diabetic neuropathy, unspecified; E78.00 Pure hypercholesterolemia, unspecified; F10.11 Alcohol abuse, in remission

== ENCOUNTER → 2021-02-11 | Outpatient (REF) | payer MEDICARE, OTHER | LOC: M LAB REF 12:36 | PROVIDERS: ATTEND Podiatrist Foot & Ankle Surgery | DX: L03.032 Cellulitis of left toe (principal) ==

== ENCOUNTER → 2021-05-02 | Outpatient (REF) | payer MEDICARE, OTHER ==
[2021-05-02 12:57] LABS: HEMATOCRIT 41.5 % (42.0-52.0); HEMOGLOBIN 13.6 g/dl (13.5-17.5); MEAN CORPUSCULAR HEMOGLOBIN 31.8 pg (27.0-33.0); MEAN CORPUSCULAR HGB CONC 32.8 g/dl (32.0-36.5); PLATELET COUNT, AUTOMATED 228 10^3/uL (150-450); RED BLOOD COUNT 4.28 10^6/uL (4.30-6.10); WHITE BLOOD COUNT 7.2 10^3/uL (4.0-10.0)
[2021-05-02 13:34] LABS: BLOOD UREA NITROGEN 17 MG/DL (7-18); CALCIUM LEVEL 9.8 MG/DL (8.8-10.2); CARBON DIOXIDE LEVEL 30 MEQ/L (21-32); CHLORIDE LEVEL 102 MEQ/L (98-107); CREATININE FOR GFR 0.85 MG/DL (0.70-1.30); FOLATE 14.7 NG/ML; GLOMERULAR FILTRATION RATE > 60.0 (>42); GLUCOSE, FASTING 151 MG/DL (70-100); POTASSIUM SERUM 4.8 MEQ/L (3.5-5.1); SODIUM LEVEL 136 MEQ/L (136-145); VITAMIN B12 LEVEL 344 PG/ML
[2021-05-02 15:10] LABS: HEMOGLOBIN A1c 6.8 %
== END ==
LOC: M SFHCADAM 07:22
PROVIDERS: ATTEND Physician Assistant
DX: E53.8 Deficiency of other specified B group vitamins (principal); E11.40 Type 2 diabetes mellitus with diabetic neuropathy, unspecified

== ENCOUNTER → 2021-12-24 | Outpatient (REF) | payer MEDICARE, OTHER ==
[~2021-12-24] MED LIST changes: +DOK1CAP4 PO; -DOK1CAP7 PO
[2021-12-24 12:38] LABS: HEMATOCRIT 40.2 % (42.0-52.0); HEMOGLOBIN 13.4 g/dl (13.5-17.5); MEAN CORPUSCULAR HEMOGLOBIN 31.4 pg (27.0-33.0); MEAN CORPUSCULAR HGB CONC 33.3 g/dl (32.0-36.5); MEAN CORPUSCULAR VOLUME 94.1 fl (80.0-96.0); PLATELET COUNT, AUTOMATED 333 10^3/uL (150-450); RED BLOOD COUNT 4.27 10^6/uL (4.30-6.10); WHITE BLOOD COUNT 8.2 10^3/uL (4.0-10.0)
[2021-12-24 13:12] LABS: ALBUMIN 3.8 GM/DL (3.2-5.2); ALT/SGPT 22 U/L (12-78); BILIRUBIN,TOTAL 0.6 MG/DL (0.2-1.0); BLOOD UREA NITROGEN 18 MG/DL (7-18); CALCIUM LEVEL 10.1 MG/DL (8.8-10.2); CARBON DIOXIDE LEVEL 32 MEQ/L (21-32); CHLORIDE LEVEL 98 MEQ/L (98-107); CHOLESTEROL LEVEL 144 MG/DL (<200); CHOLESTEROL RISK RATIO 2.716 (<5); CREATININE FOR GFR 0.82 MG/DL (0.70-1.30); FOLATE 9.1 NG/ML; FREE T4 1.05 NG/DL (0.76-1.46); GLOMERULAR FILTRATION RATE > 60.0 (>42); GLUCOSE, FASTING 154 MG/DL (70-100); HDL CHOLESTEROL 53 MG/DL (>40); LDL CHOLESTEROL 70 MG/DL (<100); NON-HDL-C 91 MG/DL; POTASSIUM SERUM 4.4 MEQ/L (3.5-5.1); SODIUM LEVEL 138 MEQ/L (136-145); TOTAL PROTEIN 6.6 GM/DL (6.4-8.2); TRIGLYCERIDES LEVEL 107 MG/DL (<150); VITAMIN B12 LEVEL 345 PG/ML
== END ==
LOC: M SFHCADAM 08:03
PROVIDERS: ATTEND Physician Assistant
DX: E11.40 Type 2 diabetes mellitus with diabetic neuropathy, unspecified (principal); I10 Essential (primary) hypertension; E78.00 Pure hypercholesterolemia, unspecified

== ENCOUNTER → 2022-03-13 | Outpatient (REF) | payer MEDICARE, OTHER | LOC: M SFHCADAM 12:22 | PROVIDERS: ATTEND Physician Assistant | DX: N40.0 Benign prostatic hyperplasia without lower urinary tract symptoms (principal); E55.9 Vitamin D deficiency, unspecified ==

== ENCOUNTER → 2022-03-19 | Outpatient (CLI) | payer MEDICARE, OTHER ==
[2022-03-19 19:15] LABS: TOTAL 25(OH) VITAMIN D 27.8 NG/ML (30.0-100.0)
== END ==
LOC: M ADAMS 13:19
PROVIDERS: ATTEND Physician Assistant
DX: N40.0 Benign prostatic hyperplasia without lower urinary tract symptoms (principal); E55.9 Vitamin D deficiency, unspecified; Z12.5 Encounter for screening for malignant neoplasm of prostate
CPT/HCPCS: 36415; 82306; G0103

== ENCOUNTER → 2023-04-13 | Outpatient (REF) | payer MEDICARE, OTHER ==
[2023-04-13 14:14] LABS: BASO # 0.1 10^3/uL (0.0-0.2); BASO % 0.6 % (0.0-1.0); EOS # 0.1 10^3/uL (0.0-0.5); EOS % 1.2 % (0.0-3.0); HEMATOCRIT 41.8 % (42.0-52.0); HEMOGLOBIN 13.7 g/dl (13.5-17.5); LYMPH # 1.8 10^3/uL (1.5-5.0); MEAN CORPUSCULAR HEMOGLOBIN 30.9 pg (27.0-33.0); MEAN CORPUSCULAR HGB CONC 32.8 g/dl (32.0-36.5); MEAN CORPUSCULAR VOLUME 94.4 fl (80.0-96.0); MONO # 0.9 10^3/uL (0.0-0.8); MONO % 10.2 % (2.0-8.0); NEUTROPHILS # 5.5 10^3/uL (1.5-8.5); NEUTROPHILS % 66.3 % (36.0-66.0); PLATELET COUNT, AUTOMATED 305 10^3/uL (150-450); RED BLOOD COUNT 4.43 10^6/uL (4.30-6.10); WHITE BLOOD COUNT 8.4 10^3/uL (4.0-10.0)
[2023-04-13 14:34] LABS: HEMOGLOBIN A1c 7.8 % (4.0-6.0)
[2023-04-13 14:38] LABS: CREATININE, URINE 40.5 MG/DL
[2023-04-13 14:39] LABS: MALB URINE SIEMENS < 3.0 MG/L; MAU/CREAT RATIO 7.4 MCG/MG (0.0-30.0)
[2023-04-13 14:40] LABS: THYROID STIMULATING HORMONE 1.581 uIU/ML (0.55-4.78)
[2023-04-13 14:41] LABS: VITAMIN B12 LEVEL 688 PG/ML (211-911)
[2023-04-13 14:42] LABS: ALBUMIN 3.9 G/DL (3.2-5.2); ALKALINE PHOSPHATASE 95 U/L (46-116); ALT/SGPT 21 U/L (7.0-40); AST/SGOT 15 U/L (<34); BILIRUBIN,TOTAL 0.5 MG/DL (0.3-1.2); BLOOD UREA NITROGEN 24 MG/DL (9-23); CALCIUM LEVEL 9.7 MG/DL (8.3-10.6); CARBON DIOXIDE LEVEL 31 MMOL/L (20-31); CHLORIDE LEVEL 101 MMOL/L (98-107); CHOLESTEROL LEVEL 147 MG/DL (<200); CHOLESTEROL RISK RATIO 2.58 (<5); CREATININE FOR GFR 0.93 MG/DL (0.70-1.30); GLOMERULAR FILTRATION RATE > 60.0 (>42); GLUCOSE, FASTING 189 MG/DL (74-106); HDL CHOLESTEROL 56.8 MG/DL (>40); LDL CHOLESTEROL 74.8 MG/DL (<100); NON-HDL-C 90.2 MG/DL; POTASSIUM SERUM 5.3 MMOL/L (3.5-5.1); SODIUM LEVEL 137 MMOL/L (136-145); TOTAL PROTEIN 6.4 G/DL (5.7-8.2); TRIGLYCERIDES LEVEL 77 MG/DL (<150)
[2023-04-13 14:43] LABS: FOLATE 10.9 NG/ML (>5.4)
== END ==
LOC: M SFHCADAM 08:38
PROVIDERS: ATTEND Physician Assistant
DX: U07.1 COVID-19 (principal); I10 Essential (primary) hypertension; E11.40 Type 2 diabetes mellitus with diabetic neuropathy, unspecified; N40.0 Benign prostatic hyperplasia without lower urinary tract symptoms; F10.10 Alcohol abuse, uncomplicated
CPT/HCPCS: 80053; 80061; 82043; 82607; 82746; 83036; 84439; 84443; 85025; G0103

== ENCOUNTER → 2023-07-05 | Outpatient (REF) | payer MEDICARE, OTHER ==
[~2023-07-05] MED LIST changes: +SENN-111 PO; -SENN18TA PO
[2023-07-05 13:27] LABS: HEMOGLOBIN A1c 6.4 % (4.0-6.0)
[2023-07-05 13:38] LABS: BLOOD UREA NITROGEN 14 MG/DL (9-23); CALCIUM LEVEL 9.5 MG/DL (8.3-10.6); CARBON DIOXIDE LEVEL 30 MMOL/L (20-31); CHLORIDE LEVEL 102 MMOL/L (98-107); CREATININE FOR GFR 0.79 MG/DL (0.70-1.30); GLOMERULAR FILTRATION RATE > 60.0 (>42); GLUCOSE, FASTING 138 MG/DL (74-106); POTASSIUM SERUM 4.5 MMOL/L (3.5-5.1); SODIUM LEVEL 138 MMOL/L (136-145)
== END ==
LOC: M SFHCADAM 10:04
PROVIDERS: ATTEND Physician Assistant
DX: E11.40 Type 2 diabetes mellitus with diabetic neuropathy, unspecified (principal)

== ENCOUNTER → 2023-07-08 | Outpatient (REF) | payer MEDICARE, OTHER | LOC: M SFHCADAM 10:55 | PROVIDERS: ATTEND Physician Assistant | DX: E11.40 Type 2 diabetes mellitus with diabetic neuropathy, unspecified (principal); Z53.9 Procedure and treatment not carried out, unspecified reason ==

== ENCOUNTER → 2023-10-28 | Outpatient (REF) | payer MEDICARE, OTHER ==
[2023-10-28 13:29] LABS: BLOOD UREA NITROGEN 12 MG/DL (9-23); CALCIUM LEVEL 9.8 MG/DL (8.3-10.6); CARBON DIOXIDE LEVEL 31 MMOL/L (20-31); CHLORIDE LEVEL 99 MMOL/L (98-107); CREATININE FOR GFR 0.66 MG/DL (0.70-1.30); GLOMERULAR FILTRATION RATE > 60.0 (>42); GLUCOSE, FASTING 144 MG/DL (74-106); POTASSIUM SERUM 4.9 MMOL/L (3.5-5.1); SODIUM LEVEL 136 MMOL/L (136-145)
[2023-10-28 14:08] LABS: HEMOGLOBIN A1c 6.5 % (4.0-6.0)
== END ==
LOC: M SFHCADAM 08:05
PROVIDERS: ATTEND Physician Assistant
DX: E11.40 Type 2 diabetes mellitus with diabetic neuropathy, unspecified (principal)

== ENCOUNTER → 2024-01-28 | Outpatient (REF) | payer MEDICARE, OTHER ==
[2024-01-28 13:13] LABS: HEMATOCRIT 41.5 % (42.0-52.0); HEMOGLOBIN 14.2 g/dl (13.5-17.5); MEAN CORPUSCULAR HEMOGLOBIN 30.8 pg (27.0-33.0); MEAN CORPUSCULAR HGB CONC 34.2 g/dl (32.0-36.5); PLATELET COUNT, AUTOMATED 341 10^3/uL (150-450); RED BLOOD COUNT 4.61 10^6/uL (4.30-6.10); WHITE BLOOD COUNT 11.9 10^3/uL (4.0-10.0)
[2024-01-28 13:42] LABS: CREATININE, URINE 115.9 MG/DL; MAU/CREAT RATIO 34.5 MCG/MG (0.0-30.0)
[2024-01-28 13:45] LABS: ALBUMIN 3.9 G/DL (3.2-5.2); ALKALINE PHOSPHATASE 70 U/L (46-116); ALT/SGPT 9 U/L (7.0-40); AST/SGOT 13 U/L (<34); BILIRUBIN,TOTAL 0.8 MG/DL (0.3-1.2); BLOOD UREA NITROGEN 12 MG/DL (9-23); CALCIUM LEVEL 9.1 MG/DL (8.3-10.6); CARBON DIOXIDE LEVEL 29 MMOL/L (20-31); CHLORIDE LEVEL 94 MMOL/L (98-107); CHOLESTEROL LEVEL 88 MG/DL (<200); CHOLESTEROL RISK RATIO 2.14 (<5); GLOMERULAR FILTRATION RATE > 60.0 (>42); GLUCOSE, FASTING 116 MG/DL (74-106); LDL CHOLESTEROL 28.4 MG/DL (<100); POTASSIUM SERUM 4.8 MMOL/L (3.5-5.1); PSA SCREENING 1.65 NG/ML (< 4.00); SODIUM LEVEL 126 MMOL/L (136-145); TOTAL PROTEIN 6.2 G/DL (5.7-8.2); TRIGLYCERIDES LEVEL 93 MG/DL (<150)
[2024-01-28 13:46] LABS: FOLATE 18.6 NG/ML (>5.4)
[2024-01-28 13:47] LABS: FREE T4 1.33 NG/DL (0.89-1.76); THYROID STIMULATING HORMONE 0.971 uIU/ML (0.55-4.78); VITAMIN B12 LEVEL 486 PG/ML (211-911)
[2024-01-28 13:54] LABS: HEMOGLOBIN A1c 6.5 % (4.0-6.0)
== END ==
LOC: M SFHCADAM 10:35
PROVIDERS: ATTEND Physician Assistant
DX: E11.40 Type 2 diabetes mellitus with diabetic neuropathy, unspecified (principal); I10 Essential (primary) hypertension; N40.0 Benign prostatic hyperplasia without lower urinary tract symptoms; E53.8 Deficiency of other specified B group vitamins; Z12.5 Encounter for screening for malignant neoplasm of prostate
CPT/HCPCS: 80053; 80061; 82043; 82607; 82746; 83036; 84439; 84443; 85027; G0103

== ENCOUNTER → 2024-01-28 | Outpatient (CLI) | payer MEDICARE, OTHER | LOC: M ADAMS 10:38 | PROVIDERS: ATTEND Physician Assistant | DX: M19.012 Primary osteoarthritis, left shoulder (principal); M79.602 Pain in left arm ==

== ENCOUNTER → 2024-02-03 | Outpatient (REF) | payer MEDICARE, BC, OTHER ==
[2024-02-03 13:39] LABS: BLOOD UREA NITROGEN 14 MG/DL (9-23); CALCIUM LEVEL 9.4 MG/DL (8.3-10.6); CARBON DIOXIDE LEVEL 31 MMOL/L (20-31); CHLORIDE LEVEL 97 MMOL/L (98-107); CREATININE FOR GFR 0.76 MG/DL (0.70-1.30); GLOMERULAR FILTRATION RATE > 60.0 (>42); GLUCOSE, FASTING 148 MG/DL (74-106); POTASSIUM SERUM 4.6 MMOL/L (3.5-5.1); SODIUM LEVEL 133 MMOL/L (136-145)
[2024-02-03 13:42] LABS: BASO # 0.1 10^3/uL (0.0-0.2); BASO % 0.8 % (0.0-1.0); EOS # 0.1 10^3/uL (0.0-0.5); EOS % 0.8 % (0.0-3.0); HEMOGLOBIN 13.8 g/dl (13.5-17.5); LYMPH # 2.1 10^3/uL (1.5-5.0); LYMPH % 29.7 % (24.0-44.0); MEAN CORPUSCULAR HEMOGLOBIN 30.6 pg (27.0-33.0); MEAN CORPUSCULAR HGB CONC 32.9 g/dl (32.0-36.5); MEAN CORPUSCULAR VOLUME 93.1 fl (80.0-96.0); MONO # 0.9 10^3/uL (0.0-0.8); MONO % 11.9 % (2.0-8.0); NEUTROPHILS % 56.4 % (36.0-66.0); PLATELET COUNT, AUTOMATED 318 10^3/uL (150-450); RED BLOOD COUNT 4.51 10^6/uL (4.30-6.10); WHITE BLOOD COUNT 7.2 10^3/uL (4.0-10.0)
== END ==
LOC: M SFHCADAM 09:13
PROVIDERS: ATTEND Physician Assistant
DX: E87.1 Hypo-osmolality and hyponatremia (principal); D72.829 Elevated white blood cell count, unspecified

== ENCOUNTER → 2024-05-25 | Outpatient (REF) | payer MEDICARE, BC, OTHER ==
[2024-05-25 19:25] LABS: HEMOGLOBIN 13.5 g/dl (13.5-17.5); MEAN CORPUSCULAR HGB CONC 32.9 g/dl (32.0-36.5); MEAN CORPUSCULAR VOLUME 97.2 fl (80.0-96.0); PLATELET COUNT, AUTOMATED 316 10^3/uL (150-450); RED BLOOD COUNT 4.22 10^6/uL (4.30-6.10)
[2024-05-25 19:54] LABS: ALBUMIN 3.9 G/DL (3.2-5.2); ALKALINE PHOSPHATASE 78 U/L (46-116); ALT/SGPT 15 U/L (7.0-40); AST/SGOT 9 U/L (<34); BILIRUBIN,TOTAL 0.8 MG/DL (0.3-1.2); BLOOD UREA NITROGEN 25 MG/DL (9-23); CALCIUM LEVEL 10.1 MG/DL (8.3-10.6); CARBON DIOXIDE LEVEL 32 MMOL/L (20-31); CHLORIDE LEVEL 100 MMOL/L (98-107); CREATININE FOR GFR 0.87 MG/DL (0.70-1.30); GLOMERULAR FILTRATION RATE > 60.0 (>42); GLUCOSE, FASTING 119 MG/DL (74-106); POTASSIUM SERUM 4.5 MMOL/L (3.5-5.1); SODIUM LEVEL 136 MMOL/L (136-145); TOTAL PROTEIN 6.1 G/DL (5.7-8.2)
== END ==
LOC: M SFHCADAM 14:41
PROVIDERS: ATTEND Physician Assistant
DX: K40.90 Unilateral inguinal hernia, without obstruction or gangrene, not specified as recurrent (principal)

== ENCOUNTER → 2024-05-26 | Outpatient (CLI) | payer MEDICARE, BC, OTHER ==
[~2024-05-26] MED LIST changes: +GASTROGRAFIN SOLUTION 30ML As Ordered ONE; +ISOVUE-370 76% 100ML VIAL As Ordered ONE
== END ==
LOC: M RAD 07:09
PROVIDERS: ATTEND Physician Assistant
DX: K40.90 Unilateral inguinal hernia, without obstruction or gangrene, not specified as recurrent (principal)
CPT/HCPCS: 74177; Q9963; Q9967

== ENCOUNTER → 2024-07-21 | Outpatient (REF) | payer MEDICARE, BC, OTHER ==
[~2024-07-21] MED LIST changes: -GASTROGRAFIN SOLUTION 30ML As Ordered ONE; -ISOVUE-370 76% 100ML VIAL As Ordered ONE; +MIRA3350 PO
[2024-07-21 17:57] LABS: HEMATOCRIT 44.3 % (42.0-52.0); HEMOGLOBIN 14.3 g/dl (13.5-17.5); MEAN CORPUSCULAR HGB CONC 32.3 g/dl (32.0-36.5); MEAN CORPUSCULAR VOLUME 96.1 fl (80.0-96.0); PLATELET COUNT, AUTOMATED 376 10^3/uL (150-450); RED BLOOD COUNT 4.61 10^6/uL (4.30-6.10)
[2024-07-21 18:07] LABS: ALKALINE PHOSPHATASE 78 U/L (46-116); ALT/SGPT 15 U/L (7.0-40); AST/SGOT 13 U/L (<34); BILIRUBIN,TOTAL 0.5 MG/DL (0.3-1.2); BLOOD UREA NITROGEN 21 MG/DL (9-23); CALCIUM LEVEL 9.7 MG/DL (8.3-10.6); CARBON DIOXIDE LEVEL 30 MMOL/L (20-31); CHLORIDE LEVEL 99 MMOL/L (98-107); CREATININE FOR GFR 0.68 MG/DL (0.70-1.30); GLOMERULAR FILTRATION RATE > 60.0 (>42); GLUCOSE, FASTING 115 MG/DL (74-106); POTASSIUM SERUM 4.8 MMOL/L (3.5-5.1); SODIUM LEVEL 133 MMOL/L (136-145); TOTAL PROTEIN 6.7 G/DL (5.7-8.2)
== END ==
LOC: M SFHCADAM 12:24
PROVIDERS: ATTEND Physician Assistant
DX: Z01.818 Encounter for other preprocedural examination (principal)

== ENCOUNTER 2024-07-26 06:03 | Day surgery (SDC) | payer MEDICARE, BC, OTHER ==
[~2024-07-26] VITALS: Ht 170.2 cm; Wt 73.0 kg
[2024-07-26] MEDS: CelecoXIB 400 MG CAP PO ONE (07:10)
[2024-07-26] MEDS: LR 1,000 ML IV SCH (07:10)
[2024-07-26] MEDS ORDERED: MIDAZOLAM INJ 2MG/2ML VIAL As Ordered ONE (12:41)
[2024-07-26] MEDS ORDERED: propofoL 200 MG/20 ML VIAL As Ordered ONE (12:42)
[2024-07-26] MEDS ORDERED: ROCURONIUM BROMIDE 50MG/5ML VIAL As Ordered ONE (12:42)
[2024-07-26] MEDS ORDERED: fentaNYL 100 MCG/2 ML INJECTION As Ordered ONE (12:42)
[2024-07-26] MEDS ORDERED: ACETAMINOPHEN 1000MG 100ML IV BAG As Ordered ONE (12:43)
[2024-07-26] MEDS ORDERED: KETOROLAC 60MG 2ML VIAL As Ordered ONE (12:43)
[2024-07-26] MEDS ORDERED: ONDANSETRON 4MG 2ML VIAL As Ordered ONE (12:43)
[2024-07-26] MEDS ORDERED: SUGAMMADEX SODIUM 500 MG/5 ML VIAL (BRIDION) As Ordered ONE (12:43)
[2024-07-26] MEDS ORDERED: LIDOCAINE 2% 100MG/5ML SDV (FOR ANES.) As Ordered ONE (12:43)
[2024-07-26] MEDS: ceFAZolin SOD 2 GM in IV 1 EA IV ONE (13:09)
[2024-07-26] MEDS ORDERED: ePHEDrine SULFATE 25 MG/5 ML(5MG/ML) SYRINGE As Ordered ONE (13:36)
[2024-07-26] MEDS: LIDOCAINE 1% SDV 30ML VIAL As Ordered ONE (14:45)
[2024-07-26] MEDS ORDERED: fentaNYL 100 MCG/2 ML INJECTION IV PRN (14:55)
[2024-07-26] MEDS ORDERED: ONDANSETRON 4MG 2ML VIAL IV PRN (14:55)
[2024-07-26] MEDS: oxyCODONE 5MG TAB PO PRN (15:22)
[2024-07-26 17:15] VITALS: BP 148/76; TEMP 97; O2SAT 95
== END 2024-07-26 17:25 | disposition home or self-care (01) ==
LOC: M SDC 06:03
PROVIDERS: ATTEND Surgery
DX: K40.90 Unilateral inguinal hernia, without obstruction or gangrene, not specified as recurrent (principal); E11.9 Type 2 diabetes mellitus without complications; I10 Essential (primary) hypertension; E78.00 Pure hypercholesterolemia, unspecified; Z79.899 Other long term (current) drug therapy; Z79.84 Long term (current) use of oral hypoglycemic drugs; M21.372 Foot drop, left foot; Z88.8 Allergy status to other drugs, medicaments and biological substances
CPT/HCPCS: 49650; C1781; J0131; J0665; J0690; J1100; J1885; J2250; J2405; J3010

== ENCOUNTER → 2025-03-19 | Outpatient (CLI) | payer MEDICARE, BC, OTHER ==
[~2025-03-19] MED LIST changes: -FLOM0.4C39 PO; +PROHANCE 279.3MG/ML 15ML VIAL ONE; +PROHANCE 279.3MG/ML 5ML VIAL ONE; -SENN-111 PO; +SENN-165 PO; +TAMS-18 PO
== END ==
LOC: M PLAIMG 07:26
PROVIDERS: ATTEND Physician Assistant
DX: G25.0 Essential tremor (principal); R41.3 Other amnesia
CPT/HCPCS: 70553; A9576

== ENCOUNTER → 2025-05-31 | Outpatient (REF) | payer MEDICARE, BC, OTHER ==
[~2025-05-31] MED LIST changes: -PROHANCE 279.3MG/ML 15ML VIAL ONE; -PROHANCE 279.3MG/ML 5ML VIAL ONE
[2025-05-31 15:11] LABS: PLATELET COUNT, AUTOMATED 325 10^3/uL (150-450)
[2025-05-31 15:26] LABS: VITAMIN B12 LEVEL 567.0 PG/ML (211-911)
[2025-05-31 15:28] LABS: FREE T4 1.51 NG/DL (0.89-1.76)
[2025-05-31 15:30] LABS: ALT/SGPT 15.0 U/L (7.0-40); AST/SGOT 17.0 U/L (<34); CALCIUM LEVEL 9.9 MG/DL (8.3-10.6); CARBON DIOXIDE LEVEL 28.0 MMOL/L (20-31); CHLORIDE LEVEL 97.0 MMOL/L (98-107); CHOLESTEROL LEVEL 136.0 MG/DL (<200); CHOLESTEROL RISK RATIO 2.81 (<5); CREATININE FOR GFR 0.85 MG/DL (0.70-1.30); GLOMERULAR FILTRATION RATE 88.4 (>42); LDL CHOLESTEROL 73.1 MG/DL (<100); NON-HDL-C 87.7 MG/DL; POTASSIUM SERUM 4.3 MMOL/L (3.5-5.1); SODIUM LEVEL 139.0 MMOL/L (136-145); TRIGLYCERIDES LEVEL 73.0 MG/DL (<150)
[2025-05-31 15:38] LABS: ESTIMATED AVERAGE GLUCOSE 177.0 MG/DL (60-110)
== END ==
LOC: M SFHCADAM 10:43
PROVIDERS: ATTEND Physician Assistant
DX: I10 Essential (primary) hypertension (principal); E11.40 Type 2 diabetes mellitus with diabetic neuropathy, unspecified; G25.0 Essential tremor; R41.3 Other amnesia

== ENCOUNTER → 2025-10-05 | Outpatient (REF) | payer MEDICARE, BC, OTHER ==
[2025-10-05 18:21] LABS: ALT/SGPT 17.0 U/L (7.0-40); AST/SGOT 14.0 U/L (<34); CALCIUM LEVEL 10.6 MG/DL (8.3-10.6); CARBON DIOXIDE LEVEL 34.0 MMOL/L (20-31); CHLORIDE LEVEL 96.0 MMOL/L (98-107); CREATININE FOR GFR 0.85 MG/DL (0.70-1.30); GLOMERULAR FILTRATION RATE 88.4 (>42); POTASSIUM SERUM 4.9 MMOL/L (3.5-5.1); SODIUM LEVEL 137.0 MMOL/L (136-145)
[2025-10-05 18:29] LABS: ESTIMATED AVERAGE GLUCOSE 163.0 MG/DL (60-110)
== END ==
LOC: M SFHCADAM 11:52
PROVIDERS: ATTEND Physician Assistant
DX: Z00.00 Encounter for general adult medical examination without abnormal findings (principal); I10 Essential (primary) hypertension; E11.40 Type 2 diabetes mellitus with diabetic neuropathy, unspecified; F03.B0 Unspecified dementia, moderate, without behavioral disturbance, psychotic disturbance, mood disturbance, and anxiety; K21.9 Gastro-esophageal reflux disease without esophagitis; F10.11 Alcohol abuse, in remission; E53.8 Deficiency of other specified B group vitamins